=== PATIENT | female | born 1935 | race African-American/Black ===

== ENCOUNTER 2016-11-14 20:22 | Emergency (ER) | payer MEDICARE, MEDICAID ==
[~2016-11-14] VITALS: Ht 160 cm; Wt 68.0 kg
[~2016-11-14 20:22] MED LIST: CLON0.1T PO; COR25 PO; CYCL5TAB PO; DOCU-150 PO; DORZ10DR9 OP; ELIQUIS; FAMO20TA8 PO; LACT10SO PO; LATA2.5D2 OP; LOSA25TA12 PO; MIRTAZIPINE; NITR50CA2 PO; OMEP20TA80 PO; ONDA4TAB21 PO
[2016-11-14 21:13] LABS: BASOPHILS % 0.9 % (0.0-2.0); EOSINOPHILS % 1.7 % (0.0-5.0); HEMATOCRIT. 35.6 % (36.0-48.0); HEMOGLOBIN. 11.4 g/dL (12.0-16.0); LYMPHOCYTES % 43.1 % (20.0-50.0); MEAN CORPUSCULAR HEMOGLOBIN 23.9 pg (28.0-32.0); MEAN CORPUSCULAR VOLUME 74.4 fL (81.0-99.0); MEAN PLATELET VOLUME 8.1 fl (7.4-10.4); MONOCYTES % 13.1 % (2.0-8.0); NEUTROPHILS % 41.2 % (40.0-76.0); PLATELET 159 x1000/uL (130-400); RED BLOOD CELL COUNT 4.79 mill/uL (4.2-5.4); RED CELL DISTRIBUTION WIDTH 16.7 % (11.6-14.6)
[2016-11-14 21:31] LABS: CARBON DIOXIDE 30 mEq/L (21-32); CHLORIDE 105 mEq/L (98-107); TROPONIN I 0.06 ng/mL (0.00-0.04)
[2016-11-14 21:33] LABS: D-DIMER 13.33 mg/L FEU (<0.50); INR 1.2; PARTIAL THROMBOPLASTIN TIME 30.6 sec (24.0-34.0); PROTHROMBIN TIME 12.2 sec
[2016-11-15] MEDS ORDERED: ONDANSETRON 4MG ODT PO ONE
[2016-11-15 01:02] LABS: CLARITY URINE CLOUDY (CLEAR); COLOR URINE YELLOW (YELLOW); GLUCOSE URINE NEGATIVE (NEGATIVE); KETONES URINE NEGATIVE (NEGATIVE); LEUKOCYTE ESTERASE URINE 3+ (NEGATIVE); NITRITE URINE NEGATIVE (NEGATIVE); OCCULT BLOOD URINE 1+ (NEGATIVE); PH URINE 7.5 (4.5-8.0); PROTEIN URINE NEGATIVE (NEGATIVE); SPECIFIC GRAVITY URINE 1.009 (1.005-1.030); UROBILINOGEN URINE 0.2 E.U./dL (0.2-1.0)
[2016-11-15 04:05] VITALS: BP 129/75
== END 2016-11-15 04:05 | disposition home or self-care (01) ==
LOC: ER 20:22
DX: R00.2 Palpitations (principal); I11.0 Hypertensive heart disease with heart failure; Z90.710 Acquired absence of both cervix and uterus; Z95.5 Presence of coronary angioplasty implant and graft; Z86.718 Personal history of other venous thrombosis and embolism; Z88.0 Allergy status to penicillin; Z79.01 Long term (current) use of anticoagulants
CPT/HCPCS: 36415; 71010; 80053; 81001; 83690; 83880; 84484; 85025; 85379; 85610; 85730; 93005; 93970; 99285; Q0162

== ENCOUNTER 2016-12-13 17:22 | Emergency (ER) | payer MEDICARE, MEDICAID ==
[~2016-12-13] VITALS: Ht 160 cm; Wt 64.0 kg
[~2016-12-13 17:22] MED LIST changes: +NITR50CA PO; -NITR50CA2 PO; +OMEP20TA2 PO; -OMEP20TA80 PO
[2016-12-13] MEDS ORDERED: ONDANSETRON HCL 4MG/2ML VIAL IV STA (18:12)
[2016-12-13] MEDS ORDERED: SODIUM CHLORIDE 0.9% 1,000 ML IV ONE ×2 (18:12→18:17)
[2016-12-13] MEDS ORDERED: KETOROLAC 30MG/ML VIAL IV STA (18:12)
[2016-12-13 18:41] LABS: BASOPHILS % 0.7 % (0.0-2.0); EOSINOPHILS % 0.4 % (0.0-5.0); HEMATOCRIT. 38.3 % (36.0-48.0); HEMOGLOBIN. 12.1 g/dL (12.0-16.0); LYMPHOCYTES % 27.3 % (20.0-50.0); MEAN CORPUSCULAR HEMOGLOBIN 23.5 pg (28.0-32.0); MEAN CORPUSCULAR VOLUME 74.4 fL (81.0-99.0); MEAN PLATELET VOLUME 8.3 fl (7.4-10.4); MONOCYTES % 10.1 % (2.0-8.0); NEUTROPHILS % 61.5 % (40.0-76.0); PLATELET 191 x1000/uL (130-400); RED BLOOD CELL COUNT 5.15 mill/uL (4.2-5.4); RED CELL DISTRIBUTION WIDTH 17.2 % (11.6-14.6)
[2016-12-13 18:45] LABS: INR 1.2; PROTHROMBIN TIME 12.6 sec (9.4-11.6)
[2016-12-13 18:55] LABS: CARBON DIOXIDE 29 mEq/L (21-32); CHLORIDE 103 mEq/L (98-107)
[2016-12-13 20:40] LABS: CLARITY URINE CLOUDY (CLEAR); COLOR URINE YELLOW (YELLOW); GLUCOSE URINE NEGATIVE (NEGATIVE); KETONES URINE NEGATIVE (NEGATIVE); LEUKOCYTE ESTERASE URINE 3+ (NEGATIVE); NITRITE URINE NEGATIVE (NEGATIVE); OCCULT BLOOD URINE TRACE (NEGATIVE); PROTEIN URINE NEGATIVE (NEGATIVE); SPECIFIC GRAVITY URINE 1.009 (1.005-1.030)
[2016-12-13] MEDS ORDERED: LEVOFLOXACIN 750MG PREMIX 150 ML IV ONE (21:00)
[2016-12-13 22:40] VITALS: BP 158/84
== END 2016-12-13 22:50 | disposition home or self-care (01) ==
LOC: ER 18:01
DX: N39.0 Urinary tract infection, site not specified (principal); I11.0 Hypertensive heart disease with heart failure; E78.00 Pure hypercholesterolemia, unspecified; I25.2 Old myocardial infarction; I25.10 Atherosclerotic heart disease of native coronary artery without angina pectoris; Z90.710 Acquired absence of both cervix and uterus; Z95.5 Presence of coronary angioplasty implant and graft; Z88.0 Allergy status to penicillin
CPT/HCPCS: 36415; 80053; 81001; 83690; 85025; 85610; 96361; 96365; 96375; 99285; C1893; J1885; J1956; J2405; J7030

== ENCOUNTER 2017-03-19 16:31 | Emergency (ER) | payer MEDICARE, MEDICAID ==
[~2017-03-19] VITALS: Ht 157.5 cm; Wt 57.0 kg
[2017-03-19 18:57] LABS: *AMPHETAMINES SCREEN URINE NEGATIVE (NEGATIVE); *BARBITURATES SCREEN URINE NEGATIVE (NEGATIVE); *BENZODIAZEPINES SCREEN URINE NEGATIVE (NEGATIVE); *COCAINE SCREEN URINE NEGATIVE (NEGATIVE); CANNABINOID URINE SCREEN NEGATIVE (NEGATIVE); METHADONE URINE SCREEN NEGATIVE (NEGATIVE); OPIATES URINE SCREEN PRESUMTIVE POSITIVE (NEGATIVE); PHENCYCLIDINE URINE SCREEN NEGATIVE (NEGATIVE)
[2017-03-19 19:03] LABS: BASOPHILS % 0.8 % (0.0-2.0); EOSINOPHILS % 1.6 % (0.0-5.0); HEMATOCRIT. 38.6 % (36.0-48.0); HEMOGLOBIN. 12.7 g/dL (12.0-16.0); LYMPHOCYTES % 27.1 % (20.0-50.0); MEAN CORPUSCULAR HEMOGLOBIN 24.9 pg (28.0-32.0); MEAN CORPUSCULAR VOLUME 75.9 fL (81.0-99.0); MEAN PLATELET VOLUME 8.4 fl (7.4-10.4); MONOCYTES % 7.9 % (2.0-8.0); NEUTROPHILS % 62.6 % (40.0-76.0); PLATELET 194 x1000/uL (130-400); RED BLOOD CELL COUNT 5.09 mill/uL (4.2-5.4); RED CELL DISTRIBUTION WIDTH 16.4 % (11.6-14.6)
[2017-03-19 19:08] LABS: INR 1.1
[2017-03-19 19:18] VITALS: BP 157/86
[2017-03-19 19:18] LABS: CARBON DIOXIDE 29 mEq/L (21-32); CHLORIDE 103 mEq/L (98-107); TROPONIN I 0.03 ng/mL (0.00-0.04)
== END 2017-03-19 20:00 | disposition home or self-care (01) ==
LOC: ER 16:31
DX: R53.1 Weakness (principal); R63.0 Anorexia; R53.81 Other malaise; I25.10 Atherosclerotic heart disease of native coronary artery without angina pectoris; I11.0 Hypertensive heart disease with heart failure; I50.9 Heart failure, unspecified; E78.00 Pure hypercholesterolemia, unspecified; I25.2 Old myocardial infarction; Z88.0 Allergy status to penicillin; Z79.01 Long term (current) use of anticoagulants
CPT/HCPCS: 36415; 71010; 80048; 80305; 83880; 84484; 85025; 85610; 93005; 99285

== ENCOUNTER 2017-10-22 16:27 | Emergency (ER) | payer MEDICARE, MEDICAID ==
[~2017-10-22] VITALS: Ht 167.6 cm; Wt 70.0 kg
[~2017-10-22 16:27] MED LIST changes: +BIMA2.5D4 LEFTEYE; +BRIM15DR2 EACHEYE; -CYCL5TAB PO; -ELIQUIS; +GABA-531 PO; -LACT10SO PO; -LOSA25TA12 PO; +LOSA50TA3 PO; +MIRT15TA6 PO; -MIRTAZIPINE; -OMEP20TA2 PO; +OMEP40CA34 PO; +ONDA4TAB5 PO; +ROSU20TA PO
[2017-10-22] MEDS ORDERED: IBUPROFEN 600MG TABLET PO ONE (17:15)
[2017-10-22 21:11] VITALS: BP 110/87
== END 2017-10-22 21:25 | disposition home or self-care (01) ==
LOC: ER 16:52
DX: M54.5 Low back pain (principal); G89.29 Other chronic pain; I11.0 Hypertensive heart disease with heart failure; I50.9 Heart failure, unspecified; Z88.0 Allergy status to penicillin
CPT/HCPCS: 72100; 72131; 73522; 99284

== ENCOUNTER 2017-11-28 15:11 | Inpatient (IN) | payer MEDICARE, MEDICAID ==
[~2017-11-28] VITALS: Ht 167.6 cm; Wt 66.7 kg
[2017-11-28] MEDS ORDERED: LORAZEPAM 2MG/ML CPJ IV PRN (19:00)
[2017-11-28] MEDS ORDERED: HYDROCODONE/ACETAMINOPHEN 5/325MG TABLET PO PRN (19:00)
[2017-11-28] MEDS ORDERED: ACETAMINOPHEN 325MG TABLET PO PRN (19:00)
[2017-11-28] MEDS ORDERED: CLONIDINE 0.1MG TABLET PO PRN (19:00)
[2017-11-28] MEDS ORDERED: ONDANSETRON HCL 4MG/2ML VIAL IV PRN (19:00)
[2017-11-28] MEDS ORDERED: ACETAMINOPHEN 650MG/20.3ML UDC GT PRN (19:00)
[2017-11-28] MEDS ORDERED: ACETAMINOPHEN 650MG SUPP PR PRN (19:00)
[2017-11-28] MEDS ORDERED: MAGNESIUM/ALUMINUM HYDROXIDE/SIMETHICONE 30ML UDC PO PRN (19:00)
[2017-11-28 19:02] LABS: BASOPHILS % 0.6 % (0.0-2.0); EOSINOPHILS % 2.5 % (0.0-5.0); HEMATOCRIT. 35.3 % (36.0-48.0); HEMOGLOBIN. 11.4 g/dL (12.0-16.0); LYMPHOCYTES % 30.1 % (20.0-50.0); MEAN CORPUSCULAR VOLUME 74.7 fL (81.0-99.0); MONOCYTES % 10.1 % (2.0-8.0); NEUTROPHILS % 56.7 % (40.0-76.0); PLATELET 151 x1000/uL (130-400); RED BLOOD CELL COUNT 4.72 mill/uL (4.2-5.4); RED CELL DISTRIBUTION WIDTH 17.7 % (11.6-14.6)
[2017-11-28 19:04] LABS: CHLORIDE 107 mEq/L (98-107)
[2017-11-28 19:06] LABS: INR 1.2; PROTHROMBIN TIME 11.6 sec (9.1-11.1)
[2017-11-28 19:08] LABS: ETHANOL BLOOD < 10 mg/dL
[2017-11-28] MEDS ORDERED: ONDANSETRON 4MG ODT PO PRN (20:25)
[2017-11-28] MEDS ORDERED: NA PHOS,M-B/NA PHOS,DI-BA ENEMA 118ML PR PRN (21:00)
[2017-11-28] MEDS: HYDROCODONE/ACETAMINOPHEN 10/325MG TABLET PO PRN (21:11)
[2017-11-28 22:30] VITALS: BP 141/81
[2017-11-28 22:50] VITALS: BP 141/81
[2017-11-28] MEDS ORDERED: ATORVASTATIN CALCIUM 20MG TABLET PO SCH (23:32)
[2017-11-29] VITALS: BP 177/71
[2017-11-29] MEDS: GABAPENTIN 300MG CAPSULE PO SCH ×4 (00:07→21:06)
[2017-11-29] MEDS: FAMOTIDINE 20MG TABLET PO SCH ×2 (00:07→21:06)
[2017-11-29] MEDS: OMEPRAZOLE 20MG CAPSULE EXTENDED RELEASE PO SCH ×2 (00:07→06:53)
[2017-11-29] MEDS: CARVEDILOL 25MG TABLET PO SCH ×3 (00:08→21:00)
[2017-11-29] MEDS: LOSARTAN POTASSIUM 50 MG TABLET PO SCH ×2 (00:08→09:44)
[2017-11-29] MEDS ORDERED: LATANOPROST 0.005% OPHTH DROPS 2.5ML BOTHEYE SCH (02:00)
[2017-11-29 04:00] VITALS: BP 108/37
[2017-11-29 04:17] LABS: CLARITY URINE CLEAR (CLEAR); COLOR URINE YELLOW (YELLOW); KETONES URINE NEGATIVE (NEGATIVE); LEUKOCYTE ESTERASE URINE 1+ (NEGATIVE); NITRITE URINE NEGATIVE (NEGATIVE); OCCULT BLOOD URINE TRACE (NEGATIVE); PROTEIN URINE TRACE (NEGATIVE); UROBILINOGEN URINE 0.2 E.U./dL (0.2-1.0)
[2017-11-29 04:36] LABS: *BENZODIAZEPINES SCREEN URINE NEGATIVE (NEGATIVE)
[2017-11-29 04:37] LABS: *COCAINE SCREEN URINE NEGATIVE (NEGATIVE); CANNABINOID URINE SCREEN NEGATIVE (NEGATIVE); METHADONE URINE SCREEN NEGATIVE (NEGATIVE); OPIATES URINE SCREEN PRESUMTIVE POSITIVE (NEGATIVE); PHENCYCLIDINE URINE SCREEN NEGATIVE (NEGATIVE)
[2017-11-29 04:47] LABS: *AMPHETAMINES SCREEN URINE NEGATIVE (NEGATIVE); *BARBITURATES SCREEN URINE NEGATIVE (NEGATIVE)
[2017-11-29 06:44] LABS: PHOSPHORUS 3.5 mg/dL (2.5-4.9)
[2017-11-29 06:46] LABS: LDL CHOLESTEROL 93 mg/dL (5-100)
[2017-11-29 06:47] LABS: CREATINE KINASE 46 IU/L (26-192)
[2017-11-29 06:48] LABS: T4 FREE 1.24 ng/dL (0.76-1.46)
[2017-11-29 06:49] LABS: HDL CHOLESTEROL 58 mg/dL (40-59)
[2017-11-29 06:50] LABS: CREATINE KINASE MB FRACTION < 1.0 ng/mL (0.5-3.6)
[2017-11-29 08:00] VITALS: BP 127/37
[2017-11-29] MEDS: IPRATROPIUM/ALBUTEROL 0.5-3(2.5)MG/3ML NEB INH SCH ×3 (08:53→20:43)
[2017-11-29] MEDS ORDERED: REGADENOSON 0.4 MG/5 ML IV ONE ×2 (09:15→12:05)
[2017-11-29] MEDS: DORZOLAM/TIMOLOL 2.23/0.68% OPHTH DROPS 10ML BOTHEYE SCH ×2 (09:43→17:25)
[2017-11-29] MEDS: ASPIRIN 81MG TABLET PO SCH (09:48)
[2017-11-29] MEDS: ENOXAPARIN 40MG/0.4ML SYR SUBCUT SCH (09:49)
[2017-11-29 10:15] LABS: T4 FREE 1.22 ng/dL (0.76-1.46)
[2017-11-29] MEDS ORDERED: PNEUMOCOCCAL 23-VAL P-SAC VAC 0.5 ML IM ONE (12:00)
[2017-11-29] MEDS: BRIMONIDINE 0.2% OPHTH DROPS 5ML BOTHEYE SCH ×2 (13:17→17:24)
[2017-11-29 16:00] VITALS: BP_SYST 150; BP_SYST 84; BP_DIAS 34; BP_DIAS 82
[2017-11-29 16:00] LABS: CREATINE KINASE 39 IU/L (26-192)
[2017-11-29 16:01] LABS: CREATINE KINASE MB FRACTION < 1.0 ng/mL (0.5-3.6)
[2017-11-29] MEDS: MIRTAZAPINE 15MG TABLET PO SCH (17:25)
[2017-11-29] MEDS: HYDROCODONE/ACETAMINOPHEN 10/325MG TABLET PO PRN (17:36)
[2017-11-29 20:00] VITALS: BP 98/39
[2017-11-29] MEDS: LATANOPROST 0.005% OPHTH DROPS 2.5ML BOTHEYE SCH (21:05)
[2017-11-29] MEDS: ATORVASTATIN CALCIUM 40MG TABLET PO SCH (21:05)
[2017-11-29] MEDS: NITROFURANTOIN 100MG M/M CAPSULE PO SCH (21:06)
[2017-11-30] VITALS: BP 115/48
[2017-11-30] MEDS: IPRATROPIUM/ALBUTEROL 0.5-3(2.5)MG/3ML NEB INH SCH ×4 (01:44→20:39)
[2017-11-30 02:09] LABS: CREATINE KINASE 47 IU/L (26-192)
[2017-11-30 02:11] LABS: CREATINE KINASE MB FRACTION < 1.0 ng/mL (0.5-3.6)
[2017-11-30 04:00] VITALS: BP 118/41
[2017-11-30] MEDS: OMEPRAZOLE 20MG CAPSULE EXTENDED RELEASE PO SCH (06:29)
[2017-11-30] MEDS: GABAPENTIN 300MG CAPSULE PO SCH ×3 (06:29→21:43)
[2017-11-30 07:38] LABS: BASOPHILS % 0.5 % (0.0-2.0); HEMATOCRIT. 30.4 % (36.0-48.0); HEMOGLOBIN. 9.9 g/dL (12.0-16.0); LYMPHOCYTES % 34.2 % (20.0-50.0); MEAN CORPUSCULAR HEMOGLOBIN 24.3 pg (28.0-32.0); MEAN CORPUSCULAR VOLUME 74.8 fL (81.0-99.0); MEAN PLATELET VOLUME 8.9 fl (7.4-10.4); MONOCYTES % 10.5 % (2.0-8.0); NEUTROPHILS % 51.8 % (40.0-76.0); PLATELET 115 x1000/uL (130-400); RED BLOOD CELL COUNT 4.07 mill/uL (4.2-5.4); RED CELL DISTRIBUTION WIDTH 17.7 % (11.6-14.6)
[2017-11-30 07:57] LABS: CHLORIDE 105 mEq/L (98-107)
[2017-11-30 08:00] VITALS: BP 149/54
[2017-11-30 08:10] LABS: PHOSPHORUS 3.3 mg/dL (2.5-4.9)
[2017-11-30 08:11] LABS: CREATINE KINASE 34 IU/L (26-192)
[2017-11-30 08:22] LABS: CREATINE KINASE MB FRACTION < 1.0 ng/mL (0.5-3.6)
[2017-11-30] MEDS: ENOXAPARIN 40MG/0.4ML SYR SUBCUT SCH (10:02)
[2017-11-30] MEDS: LOSARTAN POTASSIUM 50 MG TABLET PO SCH (10:03)
[2017-11-30] MEDS: NITROFURANTOIN 100MG M/M CAPSULE PO SCH ×2 (10:03→21:43)
[2017-11-30] MEDS: CARVEDILOL 25MG TABLET PO SCH ×2 (10:04→21:48)
[2017-11-30] MEDS: ASPIRIN 81MG TABLET PO SCH (10:04)
[2017-11-30 12:00] VITALS: BP 145/52
[2017-11-30] MEDS: DORZOLAM/TIMOLOL 2.23/0.68% OPHTH DROPS 10ML BOTHEYE SCH ×2 (15:53→21:43)
[2017-11-30] MEDS: BRIMONIDINE 0.2% OPHTH DROPS 5ML BOTHEYE SCH ×2 (15:54→21:43)
[2017-11-30 16:00] VITALS: BP 123/47
[2017-11-30] MEDS: MIRTAZAPINE 15MG TABLET PO SCH (18:46)
[2017-11-30 20:00] VITALS: BP 167/69
[2017-11-30] MEDS: ATORVASTATIN CALCIUM 40MG TABLET PO SCH (21:43)
[2017-11-30] MEDS: LATANOPROST 0.005% OPHTH DROPS 2.5ML BOTHEYE SCH (21:43)
[2017-11-30] MEDS: FAMOTIDINE 20MG TABLET PO SCH (21:44)
[2017-12-01] VITALS: BP 108/46
[2017-12-01] MEDS: IPRATROPIUM/ALBUTEROL 0.5-3(2.5)MG/3ML NEB INH SCH ×2 (02:00→08:49)
[2017-12-01] MEDS: GABAPENTIN 300MG CAPSULE PO SCH ×2 (05:57→13:02)
[2017-12-01 07:49] LABS: CHLORIDE 108 mEq/L (98-107)
[2017-12-01 07:56] LABS: BASOPHILS % 0.4 % (0.0-2.0); EOSINOPHILS % 4.4 % (0.0-5.0); HEMATOCRIT. 31.8 % (36.0-48.0); HEMOGLOBIN. 10.3 g/dL (12.0-16.0); LYMPHOCYTES % 34.4 % (20.0-50.0); MEAN CORPUSCULAR HEMOGLOBIN 24.3 pg (28.0-32.0); MEAN CORPUSCULAR VOLUME 75.3 fL (81.0-99.0); MONOCYTES % 11.4 % (2.0-8.0); NEUTROPHILS % 49.4 % (40.0-76.0); PLATELET 117 x1000/uL (130-400); RED BLOOD CELL COUNT 4.22 mill/uL (4.2-5.4); RED CELL DISTRIBUTION WIDTH 17.6 % (11.6-14.6)
[2017-12-01 08:00] VITALS: BP 155/59
[2017-12-01] MEDS: LOSARTAN POTASSIUM 50 MG TABLET PO SCH (09:00)
[2017-12-01] MEDS: NITROFURANTOIN 100MG M/M CAPSULE PO SCH (11:01)
[2017-12-01] MEDS: ASPIRIN 81MG TABLET PO SCH (11:01)
[2017-12-01] MEDS: DORZOLAM/TIMOLOL 2.23/0.68% OPHTH DROPS 10ML BOTHEYE SCH (11:01)
[2017-12-01] MEDS: BRIMONIDINE 0.2% OPHTH DROPS 5ML BOTHEYE SCH (11:02)
[2017-12-01] MEDS: ENOXAPARIN 40MG/0.4ML SYR SUBCUT SCH (11:03)
[2017-12-01 14:49] VITALS: BP 150/63
[2017-12-01] MEDS: CARVEDILOL 25MG TABLET PO SCH (15:09)
== END 2017-12-01 16:41 | disposition home or self-care (01) | DRG 205 ==
LOC: ER 15:37 → 5WST 18:27 → EDBEDREQTM 18:29 → EDBEDREQ 18:29 → ENRESERV 20:20
PROVIDERS: ADMIT Family Medicine Adult Medicine; ATTEND Family Medicine Adult Medicine
DX: M94.0 Chondrocostal junction syndrome [Tietze] (principal); I50.23 Acute on chronic systolic (congestive) heart failure; N39.0 Urinary tract infection, site not specified; I42.9 Cardiomyopathy, unspecified; I11.0 Hypertensive heart disease with heart failure; E78.5 Hyperlipidemia, unspecified; I25.10 Atherosclerotic heart disease of native coronary artery without angina pectoris; I44.7 Left bundle-branch block, unspecified; I48.0 Paroxysmal atrial fibrillation; J44.9 Chronic obstructive pulmonary disease, unspecified; K57.90 Diverticulosis of intestine, part unspecified, without perforation or abscess without bleeding; I34.0 Nonrheumatic mitral (valve) insufficiency; D64.9 Anemia, unspecified; I49.3 Ventricular premature depolarization; R91.1 Solitary pulmonary nodule; Z95.5 Presence of coronary angioplasty implant and graft; I25.2 Old myocardial infarction; Z86.73 Personal history of transient ischemic attack (TIA), and cerebral infarction without residual deficits; Z86.718 Personal history of other venous thrombosis and embolism; Z88.6 Allergy status to analgesic agent; Z88.0 Allergy status to penicillin; Z79.899 Other long term (current) drug therapy
CPT/HCPCS: 36415; 71045; 78452; 80048; 80053; 80061; 80305; 81003; 82040; 82550; 82553; 83036; 83605; 83690; 83735; 83880; 84100; 84439; 84443; 84481; 84484; 85025; 85379; 85610; 87077; 87086; 87186; 90732; 93005; 93017; 93306; 93970; 94640; 97110; 97162; 99285; A9500; C1893; G0482; J1650; J2785; J7620

== ENCOUNTER 2018-02-03 14:04 | Emergency (ER) | payer MEDICARE, MEDICAID ==
[~2018-02-03] VITALS: Ht 165.1 cm; Wt 65.0 kg
[~2018-02-03 14:04] MED LIST changes: -FAMO20TA8 PO; -NITR50CA PO; -ONDA4TAB5 PO
[2018-02-03] MEDS ORDERED: MORPHINE SULFATE 10 MG/ML CPJ IV ONE (15:30)
[2018-02-03] MEDS ORDERED: METOCLOPRAMIDE HCL 10MG/2ML VIAL IV ONE (15:30)
[2018-02-03 19:15] VITALS: BP 131/74
== END 2018-02-03 19:45 | disposition home or self-care (01) ==
LOC: ER 14:04
DX: S82.292A Other fracture of shaft of left tibia, initial encounter for closed fracture (principal); S93.491A Sprain of other ligament of right ankle, initial encounter; I11.0 Hypertensive heart disease with heart failure; I50.9 Heart failure, unspecified; E11.9 Type 2 diabetes mellitus without complications; W17.2XXA Fall into hole, initial encounter; Y93.89 Activity, other specified; Y92.89 Other specified places as the place of occurrence of the external cause; Y99.8 Other external cause status; Z88.0 Allergy status to penicillin; Z79.899 Other long term (current) drug therapy
CPT/HCPCS: 29515; 73590; 73610; 73630; 96374; 96375; 99284; J2270; J2765

== ENCOUNTER 2018-02-16 16:39 | Inpatient (IN) | payer MEDICARE, MEDICAID ==
[~2018-02-16] VITALS: Ht 160 cm; Wt 60.3 kg
[2018-02-16] MEDS ORDERED: MORPHINE SULFATE 4 MG/ML CPJ (NOT FOR IM USE) IV STA (17:23)
[2018-02-16] MEDS ORDERED: ONDANSETRON HCL 4MG/2ML INJ IV STA (17:23)
[2018-02-16] MEDS ORDERED: SODIUM CHLORIDE 0.9% 1,000 ML IV ONE (17:23)
[2018-02-16 17:38] LABS: BASOPHILS % 1.1 % (0.0-2.0); EOSINOPHILS % 1.5 % (0.0-5.0); HEMATOCRIT. 36.3 % (36.0-48.0); HEMOGLOBIN. 11.6 g/dL (12.0-16.0); LYMPHOCYTES % 27.8 % (20.0-50.0); MEAN CORPUSCULAR HEMOGLOBIN 24.4 pg (28.0-32.0); MEAN CORPUSCULAR VOLUME 76.4 fL (81.0-99.0); MEAN PLATELET VOLUME 8.5 fl (7.4-10.4); MONOCYTES % 9.9 % (2.0-8.0); NEUTROPHILS % 59.7 % (40.0-76.0); PLATELET 170 x1000/uL (130-400); RED BLOOD CELL COUNT 4.75 mill/uL (4.2-5.4)
[2018-02-16 17:45] LABS: INR 1.2; PROTHROMBIN TIME 12.2 sec (9.1-11.1)
[2018-02-16 17:47] LABS: CHLORIDE 98 mEq/L (98-107)
[2018-02-16 17:52] LABS: CLARITY URINE CLEAR (CLEAR); COLOR URINE YELLOW (YELLOW); KETONES URINE TRACE (NEGATIVE); LEUKOCYTE ESTERASE URINE 1+ (NEGATIVE); NITRITE URINE NEGATIVE (NEGATIVE); OCCULT BLOOD URINE 1+ (NEGATIVE); PROTEIN URINE NEGATIVE (NEGATIVE); SPECIFIC GRAVITY URINE 1.009 (1.005-1.030)
[2018-02-16] MEDS ORDERED: ASPIRIN 81MG TABLET PO ONE (18:30)
[2018-02-16] MEDS ORDERED: ACETAMINOPHEN 650MG/20.3ML UDC GT PRN (22:30)
[2018-02-16] MEDS ORDERED: POTASSIUM CHLORIDE 20MEQ TABLET SR PO PRN (22:30)
[2018-02-16] MEDS ORDERED: ONDANSETRON HCL 4MG/2ML INJ IV PRN (22:30)
[2018-02-16] MEDS ORDERED: CLONIDINE 0.1MG TABLET PO PRN (22:30)
[2018-02-17] VITALS: BP_SYST 154; BP_SYST 166; BP_DIAS 53; BP_DIAS 60
[2018-02-17] MEDS ORDERED: SODIUM CHLORIDE 0.9% 100 ML IV ONE (00:15)
[2018-02-17] MEDS: NITROFURANTOIN 100MG M/M CAPSULE PO SCH ×3 (00:38→21:38)
[2018-02-17 04:00] VITALS: BP 157/64
[2018-02-17] MEDS: GABAPENTIN 300MG CAPSULE PO SCH ×3 (06:29→21:39)
[2018-02-17] MEDS: OMEPRAZOLE 20MG CAPSULE EXTENDED RELEASE PO SCH (06:29)
[2018-02-17 06:38] LABS: BASOPHILS % 0.9 % (0.0-2.0); EOSINOPHILS % 2.8 % (0.0-5.0); HEMATOCRIT. 32.2 % (36.0-48.0); HEMOGLOBIN. 10.2 g/dL (12.0-16.0); LYMPHOCYTES % 31.6 % (20.0-50.0); MEAN CORPUSCULAR HEMOGLOBIN 24.4 pg (28.0-32.0); MEAN CORPUSCULAR VOLUME 76.9 fL (81.0-99.0); MEAN PLATELET VOLUME 7.8 fl (7.4-10.4); MONOCYTES % 11.5 % (2.0-8.0); NEUTROPHILS % 53.2 % (40.0-76.0); PLATELET 163 x1000/uL (130-400); RED BLOOD CELL COUNT 4.19 mill/uL (4.2-5.4)
[2018-02-17 08:00] VITALS: BP 161/73
[2018-02-17 08:11] LABS: CHLORIDE 104 mEq/L (98-107)
[2018-02-17] MEDS: LOSARTAN POTASSIUM 50 MG TABLET PO SCH (10:11)
[2018-02-17] MEDS: CARVEDILOL 25MG TABLET PO SCH ×2 (10:12→21:39)
[2018-02-17 12:00] VITALS: BP 132/64
[2018-02-17] MEDS ORDERED: POTASSIUM CHLORIDE 20MEQ/PACKET PO SCH (15:15)
[2018-02-17 16:00] VITALS: BP 143/74
[2018-02-17] MEDS: MIRTAZAPINE 15MG TABLET PO SCH (17:28)
[2018-02-17 20:00] VITALS: BP 111/44
[2018-02-17] MEDS: ATORVASTATIN CALCIUM 20MG TABLET PO SCH (21:39)
[2018-02-18] VITALS: BP 134/68
[2018-02-18 04:00] VITALS: BP 155/70
[2018-02-18] MEDS: OMEPRAZOLE 20MG CAPSULE EXTENDED RELEASE PO SCH (06:10)
[2018-02-18] MEDS: GABAPENTIN 300MG CAPSULE PO SCH ×3 (06:10→21:15)
[2018-02-18 06:48] LABS: BASOPHILS % 0.9 % (0.0-2.0); EOSINOPHILS % 2.7 % (0.0-5.0); HEMATOCRIT. 32.7 % (36.0-48.0); HEMOGLOBIN. 10.4 g/dL (12.0-16.0); LYMPHOCYTES % 30.7 % (20.0-50.0); MEAN CORPUSCULAR HEMOGLOBIN 24.4 pg (28.0-32.0); MEAN CORPUSCULAR VOLUME 76.4 fL (81.0-99.0); MEAN PLATELET VOLUME 8.4 fl (7.4-10.4); MONOCYTES % 11.1 % (2.0-8.0); NEUTROPHILS % 54.6 % (40.0-76.0); PLATELET 163 x1000/uL (130-400); RED BLOOD CELL COUNT 4.27 mill/uL (4.2-5.4); RED CELL DISTRIBUTION WIDTH 15.8 % (11.6-14.6)
[2018-02-18 07:21] LABS: CHLORIDE 103 mEq/L (98-107)
[2018-02-18 08:00] VITALS: BP 173/56
[2018-02-18] MEDS: CARVEDILOL 25MG TABLET PO SCH ×2 (09:30→21:16)
[2018-02-18] MEDS: NITROFURANTOIN 100MG M/M CAPSULE PO SCH ×2 (09:30→21:16)
[2018-02-18] MEDS: LOSARTAN POTASSIUM 50 MG TABLET PO SCH (09:30)
[2018-02-18] MEDS ORDERED: ACETAMINOPHEN 650MG/20.3ML UDC PO PRN (10:30)
[2018-02-18 12:00] VITALS: BP 139/61
[2018-02-18] MEDS ORDERED: POTASSIUM CHLORIDE 20MEQ/PACKET PO NR ×2 (12:15→14:15)
[2018-02-18] MEDS ORDERED: POTASSIUM CHLORIDE 20MEQ TABLET SR PO NR (15:00)
[2018-02-18 16:00] VITALS: BP 123/52
[2018-02-18] MEDS: MIRTAZAPINE 15MG TABLET PO SCH (18:13)
[2018-02-18 20:00] VITALS: BP 116/48
[2018-02-18] MEDS: ATORVASTATIN CALCIUM 20MG TABLET PO SCH (21:16)
[2018-02-19] VITALS: BP 151/70
[2018-02-19 04:00] VITALS: BP 148/59
[2018-02-19] MEDS: GABAPENTIN 300MG CAPSULE PO SCH ×3 (05:53→21:21)
[2018-02-19] MEDS: OMEPRAZOLE 20MG CAPSULE EXTENDED RELEASE PO SCH (05:53)
[2018-02-19 08:00] VITALS: BP 122/48
[2018-02-19] MEDS: NITROFURANTOIN 100MG M/M CAPSULE PO SCH ×2 (08:33→21:16)
[2018-02-19] MEDS: LOSARTAN POTASSIUM 100 MG TABLET PO SCH (08:33)
[2018-02-19] MEDS: CARVEDILOL 25MG TABLET PO SCH ×2 (08:34→21:17)
[2018-02-19] MEDS: HYDROCODONE/ACETAMINOPHEN 5/325MG TABLET PO PRN (08:59)
[2018-02-19] MEDS ORDERED: POTASSIUM CHLORIDE 20MEQ TABLET SR PO NR (10:45)
[2018-02-19] MEDS ORDERED: LACTULOSE 20G/30ML UDC PO SCH (11:15)
[2018-02-19 12:00] VITALS: BP 124/50
[2018-02-19 16:00] VITALS: BP 118/52
[2018-02-19] MEDS: MIRTAZAPINE 15MG TABLET PO SCH (17:38)
[2018-02-19 20:00] VITALS: BP 123/58
[2018-02-19] MEDS: ATORVASTATIN CALCIUM 20MG TABLET PO SCH (21:17)
[2018-02-19] MEDS ORDERED: LORAZEPAM 2MG/ML CPJ IV PRN (22:30)
[2018-02-20] VITALS: BP 110/61
[2018-02-20 04:00] VITALS: BP 110/45
[2018-02-20] MEDS: OMEPRAZOLE 20MG CAPSULE EXTENDED RELEASE PO SCH (05:55)
[2018-02-20] MEDS: GABAPENTIN 300MG CAPSULE PO SCH ×3 (05:55→21:15)
[2018-02-20 08:00] VITALS: BP 159/71
[2018-02-20 08:04] LABS: BASOPHILS % 0.6 % (0.0-2.0); EOSINOPHILS % 4.9 % (0.0-5.0); HEMATOCRIT. 33.5 % (36.0-48.0); HEMOGLOBIN. 10.6 g/dL (12.0-16.0); LYMPHOCYTES % 29.9 % (20.0-50.0); MEAN CORPUSCULAR VOLUME 75.8 fL (81.0-99.0); MEAN PLATELET VOLUME 8.5 fl (7.4-10.4); MONOCYTES % 11.4 % (2.0-8.0); NEUTROPHILS % 53.2 % (40.0-76.0); PLATELET 163 x1000/uL (130-400); RED BLOOD CELL COUNT 4.42 mill/uL (4.2-5.4); RED CELL DISTRIBUTION WIDTH 15.7 % (11.6-14.6)
[2018-02-20] MEDS: CARVEDILOL 25MG TABLET PO SCH ×2 (09:25→21:00)
[2018-02-20] MEDS: LOSARTAN POTASSIUM 100 MG TABLET PO SCH (09:25)
[2018-02-20] MEDS: NITROFURANTOIN 100MG M/M CAPSULE PO SCH (09:25)
[2018-02-20 10:30] LABS: CHLORIDE 103 mEq/L (98-107)
[2018-02-20] MEDS: HYDROCODONE/ACETAMINOPHEN 5/325MG TABLET PO PRN ×2 (11:26→21:16)
[2018-02-20 12:00] VITALS: BP 166/69
[2018-02-20] MEDS ORDERED: NA PHOS,M-B/NA PHOS,DI-BA ENEMA 118ML PR PRN (13:15)
[2018-02-20] MEDS ORDERED: BISACODYL 10MG SUPP PR NR (13:15)
[2018-02-20] MEDS: LACTULOSE 20G/30ML UDC PO SCH ×2 (15:15→17:00)
[2018-02-20 16:00] VITALS: BP 113/47
[2018-02-20] MEDS: MIRTAZAPINE 15MG TABLET PO SCH (19:07)
[2018-02-20 20:00] VITALS: BP 99/44
[2018-02-20] MEDS: ATORVASTATIN CALCIUM 20MG TABLET PO SCH (21:15)
[2018-02-21] VITALS (7 sets, daily range): BP systolic 85–127; BP diastolic 39–98
[2018-02-21] MEDS: HYDROCODONE/ACETAMINOPHEN 5/325MG TABLET PO PRN (04:08)
[2018-02-21] MEDS: OMEPRAZOLE 20MG CAPSULE EXTENDED RELEASE PO SCH (06:08)
[2018-02-21] MEDS: GABAPENTIN 300MG CAPSULE PO SCH ×2 (06:08→15:02)
[2018-02-21 06:25] LABS: BASOPHILS % 0.6 % (0.0-2.0); EOSINOPHILS % 3.6 % (0.0-5.0); HEMATOCRIT. 34.2 % (36.0-48.0); HEMOGLOBIN. 10.8 g/dL (12.0-16.0); LYMPHOCYTES % 26.7 % (20.0-50.0); MEAN CORPUSCULAR HEMOGLOBIN 24.2 pg (28.0-32.0); MEAN CORPUSCULAR VOLUME 76.9 fL (81.0-99.0); MEAN PLATELET VOLUME 8.4 fl (7.4-10.4); MONOCYTES % 10.2 % (2.0-8.0); NEUTROPHILS % 58.9 % (40.0-76.0); PLATELET 158 x1000/uL (130-400); RED BLOOD CELL COUNT 4.45 mill/uL (4.2-5.4); RED CELL DISTRIBUTION WIDTH 16.2 % (11.6-14.6)
[2018-02-21] MEDS: CARVEDILOL 25MG TABLET PO SCH (09:00)
[2018-02-21] MEDS: LOSARTAN POTASSIUM 100 MG TABLET PO SCH (09:00)
[2018-02-21] MEDS: MIRTAZAPINE 15MG TABLET PO SCH (18:12)
[2018-02-22] MEDS ORDERED: FAMOTIDINE 20MG TABLET PO SCH (09:00)
== END 2018-02-21 20:10 | DRG 690 ==
LOC: ER 17:41 → 5WST 19:24 → EDBEDREQ 19:38 → EDBEDREQTM 19:38 → ENRESERV 20:43
PROVIDERS: ADMIT Specialist; ATTEND Specialist
DX: N39.0 Urinary tract infection, site not specified (principal); I50.22 Chronic systolic (congestive) heart failure; A08.4 Viral intestinal infection, unspecified; E87.6 Hypokalemia; I25.5 Ischemic cardiomyopathy; R26.9 Unspecified abnormalities of gait and mobility; R53.81 Other malaise; S82.302A Unspecified fracture of lower end of left tibia, initial encounter for closed fracture; W18.39XA Other fall on same level, initial encounter; D50.9 Iron deficiency anemia, unspecified; E11.59 Type 2 diabetes mellitus with other circulatory complications; E78.5 Hyperlipidemia, unspecified; H54.61 Unqualified visual loss, right eye, normal vision left eye; I11.0 Hypertensive heart disease with heart failure; I25.10 Atherosclerotic heart disease of native coronary artery without angina pectoris; I48.0 Paroxysmal atrial fibrillation; J44.9 Chronic obstructive pulmonary disease, unspecified; K57.90 Diverticulosis of intestine, part unspecified, without perforation or abscess without bleeding; Z86.718 Personal history of other venous thrombosis and embolism; Z86.73 Personal history of transient ischemic attack (TIA), and cerebral infarction without residual deficits; Z86.79 Personal history of other diseases of the circulatory system; Z87.891 Personal history of nicotine dependence; Z88.0 Allergy status to penicillin; I25.2 Old myocardial infarction; Z90.710 Acquired absence of both cervix and uterus; Y93.89 Activity, other specified; Y92.89 Other specified places as the place of occurrence of the external cause; Y99.8 Other external cause status
CPT/HCPCS: 36415; 71045; 74176; 80048; 82962; 83880; 84484; 87077; 87186; 93005; 93970; 96361; 96374; 96375; 97162; 97166; 99285; A6261; C1893; J2270; J2405; J7030

== ENCOUNTER 2018-04-02 12:34 | Emergency (ER) | payer MEDICARE, MEDICAID ==
[~2018-04-02] VITALS: Ht 162.6 cm; Wt 62.0 kg
[~2018-04-02 12:34] MED LIST changes: -BIMA2.5D4 LEFTEYE; -BRIM15DR2 EACHEYE; -DOCU-150 PO; -DORZ10DR9 OP; -LATA2.5D2 OP; -OMEP40CA34 PO; -ONDA4TAB21 PO; -ROSU20TA PO
[2018-04-02] MEDS ORDERED: IBUPROFEN 600MG TABLET PO STA (13:33)
[2018-04-02] MEDS ORDERED: ACETAMINOPHEN 325MG TABLET PO ONE (14:00)
[2018-04-02] MEDS ORDERED: HYDROCODONE/ACETAMINOPHEN 5/325MG TABLET PO ONE (15:45)
[2018-04-02 18:08] LABS: CLARITY URINE CLEAR (CLEAR); COLOR URINE YELLOW (YELLOW); KETONES URINE NEGATIVE (NEGATIVE); LEUKOCYTE ESTERASE URINE 1+ (NEGATIVE); NITRITE URINE NEGATIVE (NEGATIVE); OCCULT BLOOD URINE 1+ (NEGATIVE); PROTEIN URINE NEGATIVE (NEGATIVE); SPECIFIC GRAVITY URINE 1.009 (1.005-1.030)
[2018-04-02 21:24] VITALS: BP 118/70
== END 2018-04-02 21:33 | disposition home or self-care (01) ==
LOC: ER 12:34
DX: M79.652 Pain in left thigh (principal); M79.651 Pain in right thigh; I11.0 Hypertensive heart disease with heart failure; I50.9 Heart failure, unspecified; E11.9 Type 2 diabetes mellitus without complications; Z88.0 Allergy status to penicillin; Z79.899 Other long term (current) drug therapy
CPT/HCPCS: 93970; 99284

== ENCOUNTER 2018-07-24 16:38 | Inpatient (IN) | payer MEDICARE, MEDICAID ==
[~2018-07-24] VITALS: Ht 160 cm; Wt 59.0 kg
[2018-07-24] MEDS ORDERED: MORPHINE SULFATE 4 MG/ML CPJ (NOT FOR IM USE) IV STA (17:20)
[2018-07-24] MEDS ORDERED: SODIUM CHLORIDE 0.9% 1,000 ML IV ONE (17:20)
[2018-07-24 18:03] LABS: BASOPHILS % 1.2 % (0.0-2.0); EOSINOPHILS % 2.4 % (0.0-5.0); HEMATOCRIT. 36.9 % (36.0-48.0); HEMOGLOBIN. 11.8 g/dL (12.0-16.0); LYMPHOCYTES % 33.5 % (20.0-50.0); MEAN CORPUSCULAR HEMOGLOBIN 24.4 pg (28.0-32.0); MEAN CORPUSCULAR VOLUME 76.1 fL (81.0-99.0); MONOCYTES % 10.7 % (2.0-8.0); NEUTROPHILS % 52.2 % (40.0-76.0); PLATELET 177 x1000/uL (130-400); RED BLOOD CELL COUNT 4.85 mill/uL (4.2-5.4)
[2018-07-24 18:07] LABS: CHLORIDE 105 mEq/L (98-107)
[2018-07-24] MEDS ORDERED: ASPIRIN 81MG TABLET PO ONE (18:45)
[2018-07-24] MEDS ORDERED: ONDANSETRON HCL 4MG/2ML INJ IV ONE (19:00)
[2018-07-24 19:30] LABS: CLARITY URINE CLEAR (CLEAR); COLOR URINE YELLOW (YELLOW); KETONES URINE NEGATIVE (NEGATIVE); LEUKOCYTE ESTERASE URINE 2+ (NEGATIVE); NITRITE URINE NEGATIVE (NEGATIVE); OCCULT BLOOD URINE 1+ (NEGATIVE); PROTEIN URINE NEGATIVE (NEGATIVE); SPECIFIC GRAVITY URINE 1.006 (1.005-1.030)
[2018-07-24] MEDS ORDERED: SULFAMETHOXAZOLE/TRIMETHOPRIM 800/160MG TABLET PO ONE (19:45)
[2018-07-24] MEDS ORDERED: CLONIDINE 0.1MG TABLET PO PRN (21:45)
[2018-07-24] MEDS ORDERED: DOCUSATE SODIUM 100MG CAPSULE PO PRN (21:45)
[2018-07-24] MEDS ORDERED: HYDROCODONE/ACETAMINOPHEN 5/325MG TABLET PO PRN (21:45)
[2018-07-24] MEDS ORDERED: MAGNESIUM/ALUMINUM HYDROXIDE/SIMETHICONE 30ML UDC PO PRN (21:45)
[2018-07-24 23:21] VITALS: BP 150/60
[2018-07-24] MEDS ORDERED: PNEUMOCOCCAL 23-VAL P-SAC VAC 0.5 ML IM ONE (23:45)
[2018-07-25] VITALS: BP 119/67
[2018-07-25] MEDS: PANTOPRAZOLE SODIUM 40 MG/VIAL IV SCH ×2 (00:09→08:04)
[2018-07-25] MEDS: DIPHENHYDRAMINE 50MG/ML VIAL IV PRN ×2 (03:22→20:42)
[2018-07-25 04:00] VITALS: BP 143/55
[2018-07-25 07:17] LABS: BASOPHILS % 0.5 % (0.0-2.0); EOSINOPHILS % 5.3 % (0.0-5.0); HEMATOCRIT. 32.6 % (36.0-48.0); HEMOGLOBIN. 10.2 g/dL (12.0-16.0); LYMPHOCYTES % 35.9 % (20.0-50.0); MEAN CORPUSCULAR HEMOGLOBIN 23.9 pg (28.0-32.0); MEAN CORPUSCULAR VOLUME 76.2 fL (81.0-99.0); MEAN PLATELET VOLUME 8.3 fl (7.4-10.4); MONOCYTES % 12.3 % (2.0-8.0); PLATELET 170 x1000/uL (130-400); RED BLOOD CELL COUNT 4.28 mill/uL (4.2-5.4); RED CELL DISTRIBUTION WIDTH 17.6 % (11.6-14.6)
[2018-07-25 08:00] VITALS: BP 143/63
[2018-07-25 08:02] LABS: CHLORIDE 106 mEq/L (98-107)
[2018-07-25] MEDS: ENOXAPARIN 40MG/0.4ML SYR SUBCUT SCH (08:08)
[2018-07-25 08:16] LABS: LDL CHOLESTEROL 108 mg/dL (5-100)
[2018-07-25 08:19] LABS: HDL CHOLESTEROL 50 mg/dL (40-59); T4 FREE 1.31 ng/dL (0.76-1.46)
[2018-07-25 12:00] VITALS: BP 164/71
[2018-07-25] MEDS ORDERED: DEXT 5% WATER 500 ML IV ONE (13:45)
[2018-07-25] MEDS: ONDANSETRON HCL 4MG/2ML INJ IV PRN (15:48)
[2018-07-25] MEDS: NITROFURANTOIN 100MG M/M CAPSULE PO SCH ×2 (15:48→20:30)
[2018-07-25 16:00] VITALS: BP 173/76
[2018-07-25 16:58] LABS: VITAMIN B12 SERUM > 2000.0 pg/mL (211-911)
[2018-07-25 20:00] VITALS: BP 140/78
[2018-07-25] MEDS: ATORVASTATIN CALCIUM 10MG TABLET PO SCH (20:28)
[2018-07-25] MEDS: CARVEDILOL 25MG TABLET PO SCH (20:29)
[2018-07-25] MEDS: AMLODIPINE 2.5MG TABLET PO SCH (20:29)
[2018-07-25] MEDS: MORPHINE SULFATE 4 MG/ML CPJ (NOT FOR IM USE) IV PRN (22:53)
[2018-07-26] VITALS: BP 130/70
[2018-07-26 04:00] VITALS: BP 120/65
[2018-07-26 06:13] LABS: BASOPHILS % 0.2 % (0.0-2.0); EOSINOPHILS % 3.5 % (0.0-5.0); HEMATOCRIT. 30.8 % (36.0-48.0); HEMOGLOBIN. 9.9 g/dL (12.0-16.0); LYMPHOCYTES % 35.6 % (20.0-50.0); MEAN CORPUSCULAR HEMOGLOBIN 24.3 pg (28.0-32.0); MEAN CORPUSCULAR VOLUME 75.6 fL (81.0-99.0); MEAN PLATELET VOLUME 8.4 fl (7.4-10.4); MONOCYTES % 12.6 % (2.0-8.0); NEUTROPHILS % 48.1 % (40.0-76.0); PLATELET 153 x1000/uL (130-400); RED BLOOD CELL COUNT 4.07 mill/uL (4.2-5.4); RED CELL DISTRIBUTION WIDTH 17.2 % (11.6-14.6)
[2018-07-26 06:14] LABS: CHLORIDE 104 mEq/L (98-107)
[2018-07-26 08:00] VITALS: BP 117/44
[2018-07-26] MEDS: ONDANSETRON HCL 4MG/2ML INJ IV PRN (08:17)
[2018-07-26] MEDS: ENOXAPARIN 40MG/0.4ML SYR SUBCUT SCH (08:17)
[2018-07-26] MEDS: PANTOPRAZOLE SODIUM 40 MG/VIAL IV SCH (08:17)
[2018-07-26] MEDS: ASPIRIN 81MG EC TABLET PO SCH (08:18)
[2018-07-26] MEDS: CARVEDILOL 25MG TABLET PO SCH ×2 (08:18→20:38)
[2018-07-26] MEDS: NITROFURANTOIN 100MG M/M CAPSULE PO SCH ×2 (08:18→20:38)
[2018-07-26] MEDS: AMLODIPINE 2.5MG TABLET PO SCH ×2 (08:35→20:38)
[2018-07-26] MEDS: MORPHINE SULFATE 4 MG/ML CPJ (NOT FOR IM USE) IV PRN ×2 (08:46→21:49)
[2018-07-26 12:00] VITALS: BP 108/40
[2018-07-26] MEDS ORDERED: IOHEXOL-300 100 ML BOTTLE ONE (13:54)
[2018-07-26 16:00] VITALS: BP 117/56
[2018-07-26 20:00] VITALS: BP 120/60
[2018-07-26] MEDS: DIPHENHYDRAMINE 50MG/ML VIAL IV PRN (20:37)
[2018-07-26] MEDS: ATORVASTATIN CALCIUM 10MG TABLET PO SCH (20:38)
[2018-07-27] VITALS: BP 110/55
[2018-07-27 04:00] VITALS: BP 117/53
[2018-07-27 07:36] LABS: BASOPHILS % 0.5 % (0.0-2.0); CHLORIDE 103 mEq/L (98-107); EOSINOPHILS % 7.3 % (0.0-5.0); HEMATOCRIT. 32.3 % (36.0-48.0); HEMOGLOBIN. 10.1 g/dL (12.0-16.0); LYMPHOCYTES % 35.5 % (20.0-50.0); MEAN CORPUSCULAR VOLUME 76.4 fL (81.0-99.0); MEAN PLATELET VOLUME 8.6 fl (7.4-10.4); MONOCYTES % 11.8 % (2.0-8.0); NEUTROPHILS % 44.9 % (40.0-76.0); PLATELET 155 x1000/uL (130-400); RED BLOOD CELL COUNT 4.22 mill/uL (4.2-5.4); RED CELL DISTRIBUTION WIDTH 17.4 % (11.6-14.6)
[2018-07-27 08:00] VITALS: BP_SYST 122; BP_SYST 123; BP_DIAS 44; BP_DIAS 71
[2018-07-27] MEDS: NITROFURANTOIN 100MG M/M CAPSULE PO SCH ×2 (08:31→20:16)
[2018-07-27] MEDS: ASPIRIN 81MG EC TABLET PO SCH (08:31)
[2018-07-27] MEDS: PANTOPRAZOLE SODIUM 40 MG/VIAL IV SCH (08:31)
[2018-07-27] MEDS: ENOXAPARIN 40MG/0.4ML SYR SUBCUT SCH (08:32)
[2018-07-27] MEDS: CARVEDILOL 25MG TABLET PO SCH ×2 (08:39→20:17)
[2018-07-27] MEDS: AMLODIPINE 2.5MG TABLET PO SCH ×2 (08:45→20:16)
[2018-07-27] MEDS: MORPHINE SULFATE 4 MG/ML CPJ (NOT FOR IM USE) IV PRN (10:09)
[2018-07-27 12:00] VITALS: BP_SYST 123
[2018-07-27 16:00] VITALS: BP 96/40
[2018-07-27 17:33] VITALS: BP 126/46
[2018-07-27] MEDS: ATORVASTATIN CALCIUM 10MG TABLET PO SCH (20:16)
== END 2018-07-27 20:25 | disposition home or self-care (01) | DRG 690 ==
LOC: ER 16:38 → EDBEDREQ 18:48 → 7WST 18:58 → EDBEDREQTM 19:01 → EDBEDREQ 19:01 → ENRESERV 21:22
PROVIDERS: ADMIT Specialist; ATTEND Specialist
DX: N39.0 Urinary tract infection, site not specified (principal); I50.22 Chronic systolic (congestive) heart failure; E11.9 Type 2 diabetes mellitus without complications; D50.9 Iron deficiency anemia, unspecified; E78.5 Hyperlipidemia, unspecified; B96.5 Pseudomonas (aeruginosa) (mallei) (pseudomallei) as the cause of diseases classified elsewhere; R07.89 Other chest pain; I11.0 Hypertensive heart disease with heart failure; I25.10 Atherosclerotic heart disease of native coronary artery without angina pectoris; I25.5 Ischemic cardiomyopathy; Z82.49 Family history of ischemic heart disease and other diseases of the circulatory system; Z86.73 Personal history of transient ischemic attack (TIA), and cerebral infarction without residual deficits; Z86.79 Personal history of other diseases of the circulatory system; I25.2 Old myocardial infarction; Z90.710 Acquired absence of both cervix and uterus; Z95.5 Presence of coronary angioplasty implant and graft; Z95.828 Presence of other vascular implants and grafts; Z88.0 Allergy status to penicillin; Z79.899 Other long term (current) drug therapy; Z86.718 Personal history of other venous thrombosis and embolism
CPT/HCPCS: 36415; 71045; 71260; 74176; 74177; 80048; 80061; 82550; 82607; 82962; 83735; 84439; 84443; 84481; 84484; 87077; 87186; 90732; 93005; 93306; 96374; 99285; C9113; J1200; J1650; J2270; J2405; J7030; Q9967

== ENCOUNTER 2018-09-27 19:51 | Inpatient (IN) | payer MEDICARE, MEDICAID ==
[~2018-09-27] VITALS: Ht 160 cm; Wt 59.9 kg
[2018-09-27] MEDS ORDERED: SODIUM CHLORIDE 0.9% 1,000 ML IV ONE (20:33)
[2018-09-27] MEDS ORDERED: ONDANSETRON HCL 4MG/2ML INJ IV STA (20:33)
[2018-09-27] MEDS ORDERED: MORPHINE SULFATE 4 MG/ML CPJ (NOT FOR IM USE) IV STA (20:33)
[2018-09-27] MEDS ORDERED: LEVOFLOXACIN 750MG PREMIX 150 ML IV ONE (20:45)
[2018-09-27 20:59] LABS: CHLORIDE 103 mEq/L (98-107)
[2018-09-27 21:03] LABS: INR 1.1; PARTIAL THROMBOPLASTIN TIME 26.8 sec (23.4-31.0); PROTHROMBIN TIME 11.5 sec (9.6-11.0)
[2018-09-27 21:07] LABS: BASOPHILS % 0.8 % (0.0-2.0); EOSINOPHILS % 1.3 % (0.0-5.0); HEMATOCRIT. 37.3 % (36.0-48.0); HEMOGLOBIN. 12.3 g/dL (12.0-16.0); LYMPHOCYTES % 26.1 % (20.0-50.0); MEAN CORPUSCULAR HEMOGLOBIN 24.7 pg (28.0-32.0); MEAN CORPUSCULAR VOLUME 74.7 fL (81.0-99.0); MONOCYTES % 9.9 % (2.0-8.0); NEUTROPHILS % 61.9 % (40.0-76.0); PLATELET 172 x1000/uL (130-400); RED CELL DISTRIBUTION WIDTH 16.1 % (11.6-14.6)
[2018-09-27 21:19] LABS: PLATELET ESTIMATE NORMAL
[2018-09-27 22:40] LABS: CLARITY URINE CLEAR (CLEAR); COLOR URINE YELLOW (YELLOW); KETONES URINE NEGATIVE (NEGATIVE); LEUKOCYTE ESTERASE URINE 1+ (NEGATIVE); NITRITE URINE NEGATIVE (NEGATIVE); OCCULT BLOOD URINE 1+ (NEGATIVE); PROTEIN URINE 1+ (NEGATIVE); SPECIFIC GRAVITY URINE 1.007 (1.005-1.030)
[2018-09-27] MEDS ORDERED: HYDROCODONE/ACETAMINOPHEN 5/325MG TABLET PO PRN (23:30)
[2018-09-27] MEDS ORDERED: ONDANSETRON HCL 4MG/2ML INJ IV PRN (23:30)
[2018-09-27] MEDS ORDERED: GUAIFENESIN 200MG/10ML SUGAR FREE UDC PO PRN (23:30)
[2018-09-27] MEDS ORDERED: DOCUSATE SODIUM 100MG CAPSULE PO PRN (23:30)
[2018-09-27] MEDS ORDERED: LORAZEPAM 0.5MG TABLET PO PRN (23:30)
[2018-09-27] MEDS ORDERED: DIPHENHYDRAMINE 50MG/ML VIAL IV PRN (23:30)
[2018-09-27] MEDS ORDERED: IPRATROPIUM/ALBUTEROL 0.5-3(2.5)MG/3ML NEB INH PRN (23:30)
[2018-09-27] MEDS ORDERED: MAGNESIUM/ALUMINUM HYDROXIDE/SIMETHICONE 30ML UDC PO PRN (23:30)
[2018-09-27] MEDS ORDERED: CLONIDINE 0.1MG TABLET PO PRN (23:30)
[2018-09-27] MEDS ORDERED: ASPIRIN 325MG EC TABLET PO ONE (23:45)
[2018-09-28 02:30] VITALS: BP 134/67
[2018-09-28] MEDS ORDERED: FURO-152 PO (03:02)
[2018-09-28] MEDS: MIRTAZAPINE 15MG TABLET PO SCH ×2 (03:16→23:05)
[2018-09-28] MEDS: MORPHINE SULFATE 2 MG/ML CPJ (NOT FOR IM USE) IV PRN (03:17)
[2018-09-28 04:00] VITALS: BP 128/59
[2018-09-28] MEDS: GABAPENTIN 300MG CAPSULE PO SCH ×3 (06:21→23:06)
[2018-09-28] MEDS: BRIMONIDINE 0.2% OPHTH DROPS 5ML BOTHEYE SCH ×3 (06:21→23:06)
[2018-09-28 07:02] LABS: BASOPHILS % 0.6 % (0.0-2.0); HEMATOCRIT. 36.8 % (36.0-48.0); HEMOGLOBIN. 11.9 g/dL (12.0-16.0); LYMPHOCYTES % 29.7 % (20.0-50.0); MEAN CORPUSCULAR HEMOGLOBIN 24.3 pg (28.0-32.0); MEAN CORPUSCULAR VOLUME 75.3 fL (81.0-99.0); NEUTROPHILS % 56.7 % (40.0-76.0); PLATELET 174 x1000/uL (130-400); RED BLOOD CELL COUNT 4.89 mill/uL (4.2-5.4); RED CELL DISTRIBUTION WIDTH 16.3 % (11.6-14.6)
[2018-09-28 07:52] LABS: CHLORIDE 108 mEq/L (98-107)
[2018-09-28 08:00] VITALS: BP 91/39
[2018-09-28 08:07] LABS: PHOSPHORUS 2.6 mg/dL (2.5-4.9)
[2018-09-28 08:08] LABS: LDL CHOLESTEROL 111 mg/dL (5-100)
[2018-09-28 08:10] LABS: HDL CHOLESTEROL 55 mg/dL (40-59)
[2018-09-28] MEDS: APIXABAN 2.5 MG TABLET PO SCH ×2 (08:53→17:17)
[2018-09-28] MEDS ORDERED: LOSARTAN POTASSIUM 50 MG TABLET PO SCH (09:00)
[2018-09-28] MEDS ORDERED: CARVEDILOL 25MG TABLET PO SCH (09:00)
[2018-09-28] MEDS: ACETAMINOPHEN 325MG TABLET PO PRN (09:13)
[2018-09-28 12:00] VITALS: BP 129/67
[2018-09-28 16:00] VITALS: BP 100/45
[2018-09-28 20:00] VITALS: BP 118/61
[2018-09-28] MEDS ORDERED: NON FORMULARY PATIENT HOME MED XX SCH (20:45)
[2018-09-28] MEDS: CARVEDILOL 6.25 MG TABLET PO SCH (21:00)
[2018-09-28] MEDS: LATANOPROST 0.005% OPHTH DROPS 2.5ML LEFTEYE SCH (23:06)
[2018-09-29] VITALS: BP 136/52
[2018-09-29 04:00] VITALS: BP 117/60
[2018-09-29] MEDS: BRIMONIDINE 0.2% OPHTH DROPS 5ML BOTHEYE SCH ×3 (05:52→22:29)
[2018-09-29] MEDS: GABAPENTIN 300MG CAPSULE PO SCH ×3 (05:52→22:32)
[2018-09-29 06:57] LABS: BASOPHILS % 0.8 % (0.0-2.0); EOSINOPHILS % 3.5 % (0.0-5.0); HEMATOCRIT. 32.4 % (36.0-48.0); HEMOGLOBIN. 10.4 g/dL (12.0-16.0); LYMPHOCYTES % 32.4 % (20.0-50.0); MEAN CORPUSCULAR HEMOGLOBIN 23.8 pg (28.0-32.0); MEAN CORPUSCULAR VOLUME 74.4 fL (81.0-99.0); MEAN PLATELET VOLUME 8.4 fl (7.4-10.4); MONOCYTES % 11.5 % (2.0-8.0); NEUTROPHILS % 51.8 % (40.0-76.0); PLATELET 176 x1000/uL (130-400); RED BLOOD CELL COUNT 4.35 mill/uL (4.2-5.4); RED CELL DISTRIBUTION WIDTH 16.1 % (11.6-14.6)
[2018-09-29 07:22] LABS: CHLORIDE 107 mEq/L (98-107)
[2018-09-29 08:00] VITALS: BP 120/61
[2018-09-29] MEDS: LOSARTAN POTASSIUM 25 MG TABLET PO SCH (09:00)
[2018-09-29] MEDS: APIXABAN 2.5 MG TABLET PO SCH ×2 (11:20→18:59)
[2018-09-29] MEDS: CARVEDILOL 6.25 MG TABLET PO SCH ×2 (11:21→22:28)
[2018-09-29 12:00] VITALS: BP 125/74
[2018-09-29] MEDS ORDERED: ESCI10TA54 PO (15:55)
[2018-09-29] MEDS ORDERED: FAMO40TA7 PO (15:55)
[2018-09-29] MEDS ORDERED: BRIM10DR16 BOTHEYE (15:55)
[2018-09-29 16:00] VITALS: BP 130/72
[2018-09-29 16:44] LABS: TOTAL IRON BINDING CAPACITY 182 ug/dL (250-450)
[2018-09-29] MEDS: MORPHINE SULFATE 2 MG/ML CPJ (NOT FOR IM USE) IV PRN (19:35)
[2018-09-29 20:00] VITALS: BP 145/59
[2018-09-29] MEDS: LATANOPROST 0.005% OPHTH DROPS 2.5ML LEFTEYE SCH (22:27)
[2018-09-29] MEDS: NITROFURANTOIN 100MG M/M CAPSULE PO SCH (22:28)
[2018-09-29] MEDS: MIRTAZAPINE 15MG TABLET PO SCH (22:28)
[2018-09-29] MEDS: FAMOTIDINE 20MG TABLET PO SCH (22:28)
[2018-09-30] VITALS: BP 139/68
[2018-09-30 04:00] VITALS: BP 135/47
[2018-09-30 05:51] LABS: CHLORIDE 105 mEq/L (98-107)
[2018-09-30 06:08] LABS: BASOPHILS % 0.7 % (0.0-2.0); HEMATOCRIT. 31.5 % (36.0-48.0); HEMOGLOBIN. 10.2 g/dL (12.0-16.0); LYMPHOCYTES % 33.5 % (20.0-50.0); MEAN CORPUSCULAR HEMOGLOBIN 24.2 pg (28.0-32.0); MEAN CORPUSCULAR VOLUME 74.6 fL (81.0-99.0); MEAN PLATELET VOLUME 8.5 fl (7.4-10.4); MONOCYTES % 11.5 % (2.0-8.0); NEUTROPHILS % 51.3 % (40.0-76.0); PLATELET 182 x1000/uL (130-400); RED BLOOD CELL COUNT 4.22 mill/uL (4.2-5.4); RED CELL DISTRIBUTION WIDTH 16.2 % (11.6-14.6)
[2018-09-30] MEDS: BRIMONIDINE 0.2% OPHTH DROPS 5ML BOTHEYE SCH ×3 (06:27→21:52)
[2018-09-30] MEDS: GABAPENTIN 300MG CAPSULE PO SCH ×3 (06:28→21:52)
[2018-09-30] MEDS ORDERED: POTASSIUM CHLORIDE 20MEQ/PACKET PO NR (07:15)
[2018-09-30 08:00] VITALS: BP 118/48
[2018-09-30] MEDS: ACETAMINOPHEN 325MG TABLET PO PRN (08:32)
[2018-09-30] MEDS: MORPHINE SULFATE 2 MG/ML CPJ (NOT FOR IM USE) IV PRN (08:32)
[2018-09-30] MEDS: APIXABAN 2.5 MG TABLET PO SCH ×2 (10:25→18:14)
[2018-09-30] MEDS: NITROFURANTOIN 100MG M/M CAPSULE PO SCH ×2 (10:25→21:52)
[2018-09-30] MEDS: LOSARTAN POTASSIUM 25 MG TABLET PO SCH (10:26)
[2018-09-30] MEDS: CARVEDILOL 6.25 MG TABLET PO SCH ×2 (10:26→21:52)
[2018-09-30 12:00] VITALS: BP 102/45
[2018-09-30 16:00] VITALS: BP 96/45
[2018-09-30 20:00] VITALS: BP 120/48
[2018-09-30] MEDS: LATANOPROST 0.005% OPHTH DROPS 2.5ML LEFTEYE SCH (21:51)
[2018-09-30] MEDS: FAMOTIDINE 20MG TABLET PO SCH (21:52)
[2018-09-30] MEDS: MIRTAZAPINE 15MG TABLET PO SCH (21:53)
[2018-10-01] VITALS (7 sets, daily range): BP systolic 98–152; BP diastolic 34–64
[2018-10-01] MEDS: MORPHINE SULFATE 2 MG/ML CPJ (NOT FOR IM USE) IV PRN ×3 (01:18→23:18)
[2018-10-01] MEDS: BRIMONIDINE 0.2% OPHTH DROPS 5ML BOTHEYE SCH ×3 (05:46→21:34)
[2018-10-01] MEDS: GABAPENTIN 300MG CAPSULE PO SCH ×3 (05:46→21:34)
[2018-10-01 06:10] LABS: EOSINOPHILS % 6.5 % (0.0-5.0); HEMATOCRIT. 31.9 % (36.0-48.0); HEMOGLOBIN. 10.2 g/dL (12.0-16.0); LYMPHOCYTES % 40.8 % (20.0-50.0); MEAN CORPUSCULAR VOLUME 75.2 fL (81.0-99.0); MEAN PLATELET VOLUME 8.4 fl (7.4-10.4); NEUTROPHILS % 39.7 % (40.0-76.0); PLATELET 196 x1000/uL (130-400); RED BLOOD CELL COUNT 4.25 mill/uL (4.2-5.4); RED CELL DISTRIBUTION WIDTH 16.7 % (11.6-14.6)
[2018-10-01 06:29] LABS: CHLORIDE 107 mEq/L (98-107)
[2018-10-01] MEDS: NITROFURANTOIN 100MG M/M CAPSULE PO SCH (09:39)
[2018-10-01] MEDS: LOSARTAN POTASSIUM 25 MG TABLET PO SCH (09:39)
[2018-10-01] MEDS: APIXABAN 2.5 MG TABLET PO SCH ×2 (09:39→17:12)
[2018-10-01] MEDS: CARVEDILOL 6.25 MG TABLET PO SCH ×2 (09:39→21:00)
[2018-10-01] MEDS: CEFTAZIDIME PENTAHYDRATE 1 G in DEXTROSE 5% WATER 50 ML IV SCH (15:37)
[2018-10-01] MEDS: LATANOPROST 0.005% OPHTH DROPS 2.5ML LEFTEYE SCH (21:33)
[2018-10-01] MEDS: FAMOTIDINE 20MG TABLET PO SCH (21:33)
[2018-10-01] MEDS: MIRTAZAPINE 15MG TABLET PO SCH (21:33)
[2018-10-02] VITALS: BP 103/49
[2018-10-02] MEDS: CEFTAZIDIME PENTAHYDRATE 1 G in DEXTROSE 5% WATER 50 ML IV SCH ×2 (03:08→18:10)
[2018-10-02 04:00] VITALS: BP 157/69
[2018-10-02 06:22] LABS: EOSINOPHILS % 6.8 % (0.0-5.0); HEMOGLOBIN. 12.8 g/dL (12.0-16.0); MEAN CORPUSCULAR HEMOGLOBIN 24.1 pg (28.0-32.0); MEAN CORPUSCULAR VOLUME 75.5 fL (81.0-99.0); MEAN PLATELET VOLUME 8.1 fl (7.4-10.4); MONOCYTES % 11.3 % (2.0-8.0); NEUTROPHILS % 38.9 % (40.0-76.0); PLATELET 234 x1000/uL (130-400); RED CELL DISTRIBUTION WIDTH 16.8 % (11.6-14.6)
[2018-10-02] MEDS: BRIMONIDINE 0.2% OPHTH DROPS 5ML BOTHEYE SCH ×2 (06:38→18:20)
[2018-10-02] MEDS: GABAPENTIN 300MG CAPSULE PO SCH ×2 (06:38→18:20)
[2018-10-02 06:44] LABS: CHLORIDE 105 mEq/L (98-107)
[2018-10-02] MEDS ORDERED: SODIUM BICARBONATE 4% (2.4MEQ) 5ML VIAL IV ONE (07:54)
[2018-10-02] MEDS ORDERED: LIDOCAINE HCL 1% 20ML VIAL (Pyxis) INJ ONE ×2 (07:54→10:00)
[2018-10-02 08:00] VITALS: BP 97/48
[2018-10-02] MEDS: LOSARTAN POTASSIUM 25 MG TABLET PO SCH (09:00)
[2018-10-02] MEDS: CARVEDILOL 6.25 MG TABLET PO SCH (09:00)
[2018-10-02] MEDS: APIXABAN 2.5 MG TABLET PO SCH ×2 (09:23→18:20)
[2018-10-02] MEDS: MORPHINE SULFATE 2 MG/ML CPJ (NOT FOR IM USE) IV PRN (09:24)
[2018-10-02 12:00] VITALS: BP 127/49
[2018-10-02 16:00] VITALS: BP 135/50
[2018-10-02 18:43] VITALS: BP 101/65
[2018-10-02] MEDS ORDERED: CARVEDILOL 3.125 MG TABLET PO SCH (21:00)
== END 2018-10-02 19:17 | disposition home or self-care (01) | DRG 690 ==
LOC: ER 20:43 → 7WST 23:37 → ENRESERV 09-28 01:23
PROVIDERS: ADMIT Specialist; ATTEND Specialist
DX: N30.90 Cystitis, unspecified without hematuria (principal); D68.59 Other primary thrombophilia; K57.90 Diverticulosis of intestine, part unspecified, without perforation or abscess without bleeding; K52.9 Noninfective gastroenteritis and colitis, unspecified; D64.9 Anemia, unspecified; I11.0 Hypertensive heart disease with heart failure; I44.7 Left bundle-branch block, unspecified; I50.9 Heart failure, unspecified; E78.00 Pure hypercholesterolemia, unspecified; E87.6 Hypokalemia; I25.10 Atherosclerotic heart disease of native coronary artery without angina pectoris; I44.0 Atrioventricular block, first degree; I48.0 Paroxysmal atrial fibrillation; I95.9 Hypotension, unspecified; Z90.710 Acquired absence of both cervix and uterus; Z86.73 Personal history of transient ischemic attack (TIA), and cerebral infarction without residual deficits; Z86.79 Personal history of other diseases of the circulatory system; Z86.718 Personal history of other venous thrombosis and embolism; Z95.828 Presence of other vascular implants and grafts; Z79.01 Long term (current) use of anticoagulants; Z91.19 Patient's noncompliance with other medical treatment and regimen; Z98.1 Arthrodesis status; Z98.61 Coronary angioplasty status; Z86.711 Personal history of pulmonary embolism; Z88.0 Allergy status to penicillin; Z79.899 Other long term (current) drug therapy
CPT/HCPCS: 36415; 71045; 74176; 80048; 80061; 80076; 83540; 83550; 83735; 83880; 84100; 84443; 84484; 87077; 87186; 93005; 93970; 97161; 97165; 99285; A6261; C1893; J0713; J1956; J2270; J2405; J3490; J7030; J7050; J7060

== ENCOUNTER 2018-10-14 18:33 | Inpatient (IN) | payer MEDICARE, MEDICAID ==
[~2018-10-14] VITALS: Ht 160 cm; Wt 59.0 kg
[~2018-10-14 18:33] MED LIST changes: +BRIM10DR16 BOTHEYE; -CLON0.1T PO; +ESCI10TA54 PO; +FAMO40TA7 PO; +FURO-152 PO; -LOSA50TA3 PO
[2018-10-14 20:11] LABS: BASOPHILS % 1.1 % (0.0-2.0); EOSINOPHILS % 3.3 % (0.0-5.0); HEMATOCRIT. 33.3 % (36.0-48.0); HEMOGLOBIN. 10.8 g/dL (12.0-16.0); LYMPHOCYTES % 34.6 % (20.0-50.0); MEAN CORPUSCULAR HEMOGLOBIN 24.3 pg (28.0-32.0); MEAN CORPUSCULAR VOLUME 75.1 fL (81.0-99.0); MONOCYTES % 11.2 % (2.0-8.0); NEUTROPHILS % 49.8 % (40.0-76.0); PLATELET 151 x1000/uL (130-400); RED BLOOD CELL COUNT 4.43 mill/uL (4.2-5.4); RED CELL DISTRIBUTION WIDTH 17.1 % (11.6-14.6)
[2018-10-14] MEDS ORDERED: IPRATROPIUM/ALBUTEROL 0.5-3(2.5)MG/3ML NEB INH PRN (20:15)
[2018-10-14] MEDS ORDERED: DOCUSATE SODIUM 100MG CAPSULE PO PRN (20:15)
[2018-10-14] MEDS ORDERED: CLONIDINE 0.1MG TABLET PO PRN (20:15)
[2018-10-14] MEDS ORDERED: GUAIFENESIN 200MG/10ML SUGAR FREE UDC PO PRN (20:15)
[2018-10-14] MEDS ORDERED: MAGNESIUM/ALUMINUM HYDROXIDE/SIMETHICONE 30ML UDC PO PRN (20:15)
[2018-10-14] MEDS ORDERED: DIPHENHYDRAMINE 50MG/ML VIAL IV PRN (20:15)
[2018-10-14] MEDS ORDERED: HYDROCODONE/ACETAMINOPHEN 5/325MG TABLET PO PRN (20:15)
[2018-10-14] MEDS ORDERED: ACETAMINOPHEN 325MG TABLET PO PRN (20:15)
[2018-10-14 20:16] LABS: INR 1.2; PROTHROMBIN TIME 11.9 sec (9.6-11.0)
[2018-10-14 20:21] LABS: CHLORIDE 105 mEq/L (98-107)
[2018-10-14 22:40] LABS: CLARITY URINE CLEAR (CLEAR); COLOR URINE YELLOW (YELLOW); KETONES URINE NEGATIVE (NEGATIVE); LEUKOCYTE ESTERASE URINE TRACE (NEGATIVE); NITRITE URINE NEGATIVE (NEGATIVE); OCCULT BLOOD URINE TRACE (NEGATIVE); PH URINE 8.5 (4.5-8.0); PROTEIN URINE NEGATIVE (NEGATIVE); SPECIFIC GRAVITY URINE 1.005 (1.005-1.030); UROBILINOGEN URINE 0.2 E.U./dL (0.2-1.0)
[2018-10-15] MEDS: MORPHINE SULFATE 2 MG/ML CPJ (NOT FOR IM USE) IV PRN ×4 (00:30→18:20)
[2018-10-15] MEDS: ONDANSETRON HCL 4MG/2ML INJ IV PRN (00:30)
[2018-10-15] MEDS ORDERED: CEFEPIME 2,000 MG in DEXT 5% WATER 100 ML IV SCH (02:00)
[2018-10-15 04:00] VITALS: BP_SYST 138; BP_DIAS 47; BP_DIAS 65
[2018-10-15] MEDS ORDERED: APIX5TAB PO (04:36)
[2018-10-15 07:53] LABS: BASOPHILS % 1.1 % (0.0-2.0); EOSINOPHILS % 3.5 % (0.0-5.0); HEMATOCRIT. 33.1 % (36.0-48.0); HEMOGLOBIN. 10.7 g/dL (12.0-16.0); LYMPHOCYTES % 34.5 % (20.0-50.0); MEAN CORPUSCULAR HEMOGLOBIN 24.3 pg (28.0-32.0); MEAN CORPUSCULAR VOLUME 74.8 fL (81.0-99.0); MEAN PLATELET VOLUME 9.1 fl (7.4-10.4); MONOCYTES % 11.1 % (2.0-8.0); NEUTROPHILS % 49.8 % (40.0-76.0); PLATELET 156 x1000/uL (130-400); RED BLOOD CELL COUNT 4.43 mill/uL (4.2-5.4); RED CELL DISTRIBUTION WIDTH 17.1 % (11.6-14.6)
[2018-10-15 08:19] LABS: CHLORIDE 106 mEq/L (98-107)
[2018-10-15 08:36] LABS: PHOSPHORUS 3.3 mg/dL (2.5-4.9)
[2018-10-15 08:38] LABS: LDL CHOLESTEROL 113 mg/dL (5-100)
[2018-10-15 08:39] LABS: HDL CHOLESTEROL 59 mg/dL (40-59)
[2018-10-15 08:42] LABS: T4 FREE 1.05 ng/dL (0.76-1.46)
[2018-10-15] MEDS: FUROSEMIDE 40MG/4ML VIAL IV SCH (10:22)
[2018-10-15 12:00] VITALS: BP 114/48
[2018-10-15] MEDS: CEFEPIME 2,000 MG in DEXT 5% WATER 100 ML IV SCH ×2 (12:39→20:08)
[2018-10-15 16:00] VITALS: BP 116/51
[2018-10-15] MEDS ORDERED: MEDICATION NOT ON FORMULARY EA (Apixaban (Eliquis) 5 MG) PO SCH (17:00)
[2018-10-15] MEDS: APIXABAN 5 MG TABLET PO SCH (18:01)
[2018-10-15 20:00] VITALS: BP 125/81
[2018-10-16] VITALS: BP 113/63
[2018-10-16] MEDS: CEFEPIME 2,000 MG in DEXT 5% WATER 100 ML IV SCH ×3 (03:14→20:57)
[2018-10-16 04:00] VITALS: BP 132/53
[2018-10-16 07:59] LABS: BASOPHILS % 0.9 % (0.0-2.0); EOSINOPHILS % 6.1 % (0.0-5.0); HEMATOCRIT. 34.8 % (36.0-48.0); LYMPHOCYTES % 39.8 % (20.0-50.0); MEAN CORPUSCULAR HEMOGLOBIN 23.6 pg (28.0-32.0); MONOCYTES % 12.7 % (2.0-8.0); NEUTROPHILS % 40.5 % (40.0-76.0); PLATELET 149 x1000/uL (130-400); RED BLOOD CELL COUNT 4.64 mill/uL (4.2-5.4); RED CELL DISTRIBUTION WIDTH 17.3 % (11.6-14.6)
[2018-10-16 08:00] VITALS: BP 112/48
[2018-10-16 08:32] LABS: CHLORIDE 105 mEq/L (98-107)
[2018-10-16] MEDS: MORPHINE SULFATE 2 MG/ML CPJ (NOT FOR IM USE) IV PRN ×2 (08:48→17:36)
[2018-10-16] MEDS: APIXABAN 5 MG TABLET PO SCH (08:48)
[2018-10-16] MEDS: FUROSEMIDE 40MG/4ML VIAL IV SCH (08:48)
[2018-10-16 12:00] VITALS: BP 126/52
[2018-10-16 16:00] VITALS: BP 126/52
[2018-10-16] MEDS ORDERED: SORBITOL 70% SOLN 30ML PO NR ×2 (16:00→20:00)
[2018-10-16 20:50] VITALS: BP 147/56
[2018-10-16] MEDS: PANTOPRAZOLE SODIUM 40 MG/VIAL IV SCH (20:59)
[2018-10-16] MEDS: CARVEDILOL 12.5MG TABLET PO SCH (21:01)
[2018-10-16] MEDS: ONDANSETRON HCL 4MG/2ML INJ IV PRN (21:03)
[2018-10-17] VITALS: BP 123/54
[2018-10-17 04:00] VITALS: BP 139/87
[2018-10-17 07:16] LABS: BASOPHILS % 1.1 % (0.0-2.0); EOSINOPHILS % 2.1 % (0.0-5.0); HEMATOCRIT. 38.5 % (36.0-48.0); LYMPHOCYTES % 25.2 % (20.0-50.0); MEAN CORPUSCULAR HEMOGLOBIN 23.8 pg (28.0-32.0); MEAN PLATELET VOLUME 7.9 fl (7.4-10.4); MONOCYTES % 11.8 % (2.0-8.0); NEUTROPHILS % 59.8 % (40.0-76.0); PLATELET 162 x1000/uL (130-400); RED BLOOD CELL COUNT 5.06 mill/uL (4.2-5.4); RED CELL DISTRIBUTION WIDTH 17.3 % (11.6-14.6)
[2018-10-17 07:24] LABS: INR 1.2; PARTIAL THROMBOPLASTIN TIME 26.5 sec (23.4-31.0); PROTHROMBIN TIME 12.3 sec (9.6-11.0)
[2018-10-17 07:39] LABS: CHLORIDE 109 mEq/L (98-107)
[2018-10-17 08:00] VITALS: BP 144/66
[2018-10-17] MEDS ORDERED: CEFEPIME 2,000 MG in DEXT 5% WATER 100 ML IV SCH (08:00)
[2018-10-17] MEDS ORDERED: SIMETHICONE 40 MG/0.6 ML 30ML ONE (08:32)
[2018-10-17] MEDS ORDERED: BACTERIOSTATIC SODIUM CHLORIDE 0.9% 30ML VIAL IJ ONE (08:32)
[2018-10-17] MEDS: PANTOPRAZOLE SODIUM 40 MG/VIAL IV SCH ×2 (10:21→20:32)
[2018-10-17] MEDS: CARVEDILOL 12.5MG TABLET PO SCH ×2 (10:21→20:32)
[2018-10-17 12:00] VITALS: BP 136/76
[2018-10-17 16:00] VITALS: BP 127/70
[2018-10-17] MEDS ORDERED: MIDAZOLAM HCL 5 MG/5 ML VIAL ONE (17:21)
[2018-10-17] MEDS ORDERED: FENTANYL CITRATE/PF 50MCG/ML 2ML VIAL ONE (17:21)
[2018-10-17] MEDS ORDERED: MIDAZOLAM HCL 5 MG/5 ML VIAL IV PRN (17:25)
[2018-10-17 20:00] VITALS: BP 156/67
[2018-10-18] VITALS: BP 123/58
[2018-10-18] MEDS: MORPHINE SULFATE 2 MG/ML CPJ (NOT FOR IM USE) IV PRN ×2 (02:56→09:32)
[2018-10-18 04:00] VITALS: BP 130/58
[2018-10-18 07:29] LABS: BASOPHILS % 0.8 % (0.0-2.0); EOSINOPHILS % 3.1 % (0.0-5.0); LYMPHOCYTES % 31.1 % (20.0-50.0); MEAN CORPUSCULAR HEMOGLOBIN 24.2 pg (28.0-32.0); MEAN CORPUSCULAR VOLUME 75.7 fL (81.0-99.0); MEAN PLATELET VOLUME 8.2 fl (7.4-10.4); MONOCYTES % 10.1 % (2.0-8.0); NEUTROPHILS % 54.9 % (40.0-76.0); PLATELET 151 x1000/uL (130-400); RED BLOOD CELL COUNT 4.18 mill/uL (4.2-5.4); RED CELL DISTRIBUTION WIDTH 17.1 % (11.6-14.6)
[2018-10-18 07:32] LABS: CHLORIDE 109 mEq/L (98-107)
[2018-10-18 08:00] VITALS: BP 134/69
[2018-10-18 08:45] LABS: HEMATOCRIT. 31.7 % (36.0-48.0); HEMOGLOBIN. 10.1 g/dL (12.0-16.0)
[2018-10-18] MEDS: CARVEDILOL 12.5MG TABLET PO SCH (09:31)
[2018-10-18 12:00] VITALS: BP 108/57
[2018-10-18] MEDS ORDERED: POTASSIUM CHLORIDE 20MEQ TABLET SR PO NR (13:30)
[2018-10-18 16:00] VITALS: BP 142/54
[2018-10-18 16:42] VITALS: BP 142/54
[2018-10-18] MEDS ORDERED: APIXABAN 2.5 MG TABLET PO SCH (21:00)
[2018-10-18] MEDS ORDERED: AMLODIPINE 2.5MG TABLET PO SCH (21:00)
== END 2018-10-18 18:47 | DRG 445 ==
LOC: ER 18:33 → 5WST 22:33 → EDBEDREQ 22:39 → EDBEDREQTM 22:39 → ENRESERV 10-15 01:30
PROVIDERS: ADMIT Family Medicine Adult Medicine; ATTEND Family Medicine Adult Medicine
PROC: 0DB68ZX Excision of Stomach, Via Natural or Artificial Opening Endoscopic, Diagnostic (ICD-10-PCS; principal; 2018-10-17)
PROC: 0DJD8ZZ Inspection of Lower Intestinal Tract, Via Natural or Artificial Opening Endoscopic (ICD-10-PCS; 2018-10-17)
DX: K80.20 Calculus of gallbladder without cholecystitis without obstruction (principal); K57.32 Diverticulitis of large intestine without perforation or abscess without bleeding; I11.0 Hypertensive heart disease with heart failure; R35.1 Nocturia; I49.3 Ventricular premature depolarization; I44.0 Atrioventricular block, first degree; E78.00 Pure hypercholesterolemia, unspecified; K29.60 Other gastritis without bleeding; K44.9 Diaphragmatic hernia without obstruction or gangrene; K64.8 Other hemorrhoids; I48.0 Paroxysmal atrial fibrillation; I25.5 Ischemic cardiomyopathy; I25.10 Atherosclerotic heart disease of native coronary artery without angina pectoris; I50.9 Heart failure, unspecified; D50.9 Iron deficiency anemia, unspecified; I25.2 Old myocardial infarction; Z86.718 Personal history of other venous thrombosis and embolism; Z95.828 Presence of other vascular implants and grafts; Z87.440 Personal history of urinary (tract) infections; Z86.79 Personal history of other diseases of the circulatory system; Z87.891 Personal history of nicotine dependence; Z90.710 Acquired absence of both cervix and uterus; Z98.1 Arthrodesis status; Z79.01 Long term (current) use of anticoagulants; Z79.899 Other long term (current) drug therapy; Z88.0 Allergy status to penicillin
CPT/HCPCS: 36415; 71045; 76705; 80048; 80061; 80076; 83735; 84100; 84439; 84443; 84481; 84484; 88305; 88312; 88313; 93005; 93970; 96374; 96375; 97162; 99285; C1893; C9113; J0692; J1200; J1940; J2250; J2270; J2405; J3010; J3490; J7050; J7060

== ENCOUNTER 2021-08-05 13:07 | Inpatient (IN) | payer MEDICARE, MEDICAID ==
[~2021-08-05] VITALS: Ht 160 cm; Wt 61.3 kg
[~2021-08-05 13:07] MED LIST changes: +APIX5TAB PO; +BIMA2.5D4 EACHEYE; +BRIM.2 BOTHEYE; -BRIM10DR16 BOTHEYE; +DORZ10DR12 EACHEYE; +ESCI-7 PO; -ESCI10TA54 PO; +FERR325T6 MT; -GABA-531 PO; +GABA-532 PO; +LOSA50TA41 MT; +MIRT-89 PO; -MIRT15TA6 PO; +ROSU20TA2 MT
[2021-08-05] MEDS ORDERED: MORPHINE SULFATE 4 MG/ML CPJ (NOT FOR IM USE) IV STA (14:49)
[2021-08-05] MEDS ORDERED: ONDANSETRON HCL 4MG/2ML INJ IV STA (14:49)
[2021-08-05] MEDS ORDERED: VISCOUS LIDOCAINE 2% 15 ML UDC PO ONE (15:00)
[2021-08-05] MEDS ORDERED: MAGNESIUM/ALUMINUM HYDROXIDE/SIMETHICONE 30ML UDC PO ONE (15:00)
[2021-08-05 15:12] LABS: BASOPHILS % 0.7 % (0.0-2.0); EOSINOPHILS % 2.4 % (0.0-5.0); HEMATOCRIT. 32.7 % (36.0-48.0); HEMOGLOBIN. 10.4 g/dL (12.0-16.0); LYMPHOCYTES % 27.3 % (20.0-50.0); MEAN CORPUSCULAR HEMOGLOBIN 24.1 pg (28.0-32.0); MEAN CORPUSCULAR VOLUME 75.7 fL (81.0-99.0); MEAN PLATELET VOLUME 8.1 fl (7.4-10.4); MONOCYTES % 8.6 % (2.0-8.0); PLATELET 120 x1000/uL (130-400); RED BLOOD CELL COUNT 4.32 mill/uL (4.2-5.4); RED CELL DISTRIBUTION WIDTH 17.3 % (11.6-14.6)
[2021-08-05 15:14] LABS: CHLORIDE 107 mEq/L (98-107)
[2021-08-05 15:22] LABS: ETHANOL BLOOD < 10 mg/dL
[2021-08-05] MEDS: ASPIRIN 81MG TABLET PO NR ×2 (16:00→17:34)
[2021-08-05] MEDS ORDERED: NITROGLYCERIN OINT 1GM/INCH UDPKT TD NR (16:15)
[2021-08-05] MEDS ORDERED: FUROSEMIDE 40MG/4ML VIAL IVP NR (16:15)
[2021-08-05 17:45] VITALS: BP 159/64
[2021-08-05 20:00] VITALS: BP 129/63
[2021-08-05] MEDS ORDERED: MEDICATION NOT ON FORMULARY EA (Bimatoprost (Lumigan) 1 DROP) EACHEYE SCH (21:00)
[2021-08-05] MEDS ORDERED: FAMOTIDINE 40MG TABLET PO SCH (21:00)
[2021-08-05] MEDS: ATORVASTATIN CALCIUM 40MG TABLET PO SCH (21:27)
[2021-08-05] MEDS: FAMOTIDINE 20MG TABLET PO SCH (21:28)
[2021-08-05] MEDS: CARVEDILOL 12.5MG TABLET PO SCH (21:29)
[2021-08-05] MEDS: LATANOPROST 0.005% OPHTH DROPS 2.5ML EACHEYE SCH (21:30)
[2021-08-06] VITALS: BP 110/69
[2021-08-06 04:00] VITALS: BP 138/60
[2021-08-06] MEDS: FUROSEMIDE 20MG/2ML VIAL IVP SCH ×2 (05:34→17:00)
[2021-08-06 07:08] LABS: BASOPHILS % 0.8 % (0.0-2.0); EOSINOPHILS % 6.8 % (0.0-5.0); HEMATOCRIT. 32.1 % (36.0-48.0); HEMOGLOBIN. 9.9 g/dL (12.0-16.0); LYMPHOCYTES % 32.9 % (20.0-50.0); MEAN CORPUSCULAR HEMOGLOBIN 24.1 pg (28.0-32.0); MEAN CORPUSCULAR VOLUME 77.9 fL (81.0-99.0); MEAN PLATELET VOLUME 9.1 fl (7.4-10.4); MONOCYTES % 10.6 % (2.0-8.0); NEUTROPHILS % 48.9 % (40.0-76.0); PLATELET 131 x1000/uL (130-400); RED BLOOD CELL COUNT 4.11 mill/uL (4.2-5.4); RED CELL DISTRIBUTION WIDTH 17.8 % (11.6-14.6)
[2021-08-06 07:31] LABS: CHLORIDE 106 mEq/L (98-107)
[2021-08-06 08:00] VITALS: BP 125/50
[2021-08-06] MEDS: ASPIRIN 81MG TABLET PO SCH (08:28)
[2021-08-06] MEDS: LOSARTAN POTASSIUM 50 MG TABLET PO SCH (08:28)
[2021-08-06] MEDS: FERROUS SULFATE 325MG TABLET PO SCH ×2 (08:28→17:00)
[2021-08-06] MEDS: APIXABAN 5 MG TABLET PO SCH ×2 (08:28→17:00)
[2021-08-06] MEDS: GABAPENTIN 300MG CAPSULE PO SCH ×3 (08:29→17:00)
[2021-08-06] MEDS: CARVEDILOL 12.5MG TABLET PO SCH ×2 (08:29→20:37)
[2021-08-06 08:57] LABS: HDL CHOLESTEROL 53 mg/dL (40-59); LDL CHOLESTEROL 82 mg/dL (5-100)
[2021-08-06] MEDS ORDERED: MEDICATION NOT ON FORMULARY EA (Ferrous Sulfate 1 TAB) MT SCH (09:00)
[2021-08-06] MEDS ORDERED: CARVEDILOL 25 MG PO SCH (09:00)
[2021-08-06] MEDS: ISOSORBIDE MONONITRATE 60MG TABLET SR 24HR PO SCH (09:00)
[2021-08-06] MEDS: CITALOPRAM HYDROBROMIDE 10MG TABLET PO SCH ×2 (09:00→17:02)
[2021-08-06] MEDS ORDERED: MEDICATION NOT ON FORMULARY EA (Escitalopram Oxalate 10 MG) PO SCH (09:00)
[2021-08-06 11:27] LABS: *AMPHETAMINES SCREEN URINE NEGATIVE (NEGATIVE); *BARBITURATES SCREEN URINE NEGATIVE (NEGATIVE); *BENZODIAZEPINES SCREEN URINE NEGATIVE (NEGATIVE); *COCAINE SCREEN URINE NEGATIVE (NEGATIVE); CANNABINOID URINE SCREEN NEGATIVE (NEGATIVE); METHADONE URINE SCREEN NEGATIVE (NEGATIVE); OPIATES URINE SCREEN PRESUMTIVE POSITIVE (NEGATIVE); PHENCYCLIDINE URINE SCREEN NEGATIVE (NEGATIVE)
[2021-08-06] MEDS: BRIMONIDINE 0.2% OPHTH DROPS 5ML BOTHEYE SCH ×3 (11:28→17:00)
[2021-08-06] MEDS: DORZOLAM/TIMOLOL 2.23/0.68% OPHTH DROPS 10ML EACHEYE SCH ×2 (11:28→16:59)
[2021-08-06] MEDS: ACETAMINOPHEN 325MG TABLET PO PRN (11:35)
[2021-08-06 12:00] VITALS: BP 152/70
[2021-08-06 16:00] VITALS: BP 132/59
[2021-08-06] MEDS: MIRTAZAPINE 15MG TABLET PO SCH (17:00)
[2021-08-06 20:00] VITALS: BP 108/32
[2021-08-06] MEDS: ATORVASTATIN CALCIUM 40MG TABLET PO SCH (20:47)
[2021-08-06] MEDS: LATANOPROST 0.005% OPHTH DROPS 2.5ML EACHEYE SCH (20:47)
[2021-08-06] MEDS: FAMOTIDINE 20MG TABLET PO SCH (20:47)
[2021-08-07] VITALS (58 sets, daily range): BP systolic 51–162; BP diastolic 24–89
[2021-08-07] MEDS: FUROSEMIDE 20MG/2ML VIAL IVP SCH ×2 (06:09→17:22)
[2021-08-07 07:00] LABS: BASOPHILS % 0.8 % (0.0-2.0); EOSINOPHILS % 5.4 % (0.0-5.0); HEMATOCRIT. 34.3 % (36.0-48.0); HEMOGLOBIN. 11.1 g/dL (12.0-16.0); LYMPHOCYTES % 44.9 % (20.0-50.0); MEAN CORPUSCULAR HEMOGLOBIN 24.6 pg (28.0-32.0); MEAN PLATELET VOLUME 8.7 fl (7.4-10.4); MONOCYTES % 12.4 % (2.0-8.0); NEUTROPHILS % 36.5 % (40.0-76.0); PLATELET 136 x1000/uL (130-400); RED BLOOD CELL COUNT 4.51 mill/uL (4.2-5.4); RED CELL DISTRIBUTION WIDTH 17.6 % (11.6-14.6)
[2021-08-07] MEDS: ASPIRIN 81MG TABLET PO SCH (08:29)
[2021-08-07] MEDS: APIXABAN 5 MG TABLET PO SCH (08:32)
[2021-08-07] MEDS: LOSARTAN POTASSIUM 50 MG TABLET PO SCH (08:32)
[2021-08-07] MEDS: CITALOPRAM HYDROBROMIDE 10MG TABLET PO SCH (08:32)
[2021-08-07] MEDS: GABAPENTIN 300MG CAPSULE PO SCH ×3 (08:32→17:22)
[2021-08-07] MEDS: BRIMONIDINE 0.2% OPHTH DROPS 5ML BOTHEYE SCH ×3 (08:33→17:22)
[2021-08-07] MEDS: FERROUS SULFATE 325MG TABLET PO SCH ×2 (08:33→17:22)
[2021-08-07] MEDS: ISOSORBIDE MONONITRATE 60MG TABLET SR 24HR PO SCH (08:33)
[2021-08-07] MEDS: CARVEDILOL 12.5MG TABLET PO SCH (08:33)
[2021-08-07] MEDS: DORZOLAM/TIMOLOL 2.23/0.68% OPHTH DROPS 10ML EACHEYE SCH (08:34)
[2021-08-07] MEDS ORDERED: ATROPINE SULFATE 1MG/10ML SYR ONE (09:28)
[2021-08-07] MEDS ORDERED: EPINEPHRINE 0.1MG/ML (1:10,000) 10ML SYR ONE (09:28)
[2021-08-07] MEDS ORDERED: DOBUTAMINE 500MG PREMIX 250 ML IV PRN (10:30)
[2021-08-07 10:31] LABS: BG BASE EXCESS 4.4 mmol/L (-2.0-2.0); BG CARBOXYHEMOGLOBIN 0.5 % (0.5-1.5); BG DEOXYHEMOGLOBIN 0.4 % (0.0-5.0); BG FRACTION INSPIRED OXYGEN 100; BG HCO3 ACT 29.4 mmol/L (22.0-26.0); BG METHEMOGLOBIN 0.3 % (0.0-1.5); BG OXYGEN SATURATION 99.6 % (92.0-98.5); BG OXYHEMOGLOBIN 98.8 % (94.0-97.0); BG PCO2 45.9 mmHg (35.0-45.0); BG PH 7.424 (7.350-7.450); BG PO2 243.5 mmHg (75.0-100.0); BG SAMPLE SITE RIGHT RADIAL; BG TOTAL HEMOGLOBIN 10.7 g/dL (12.0-18.0); BG VENT MODE MASK - NRB
[2021-08-07] MEDS ORDERED: SODIUM CHLORIDE 0.9% 500 ML IV ONE (10:45)
[2021-08-07] MEDS: DOPAMINE 400MG/250ML PREMIX 250 ML IV PRN ×2 (11:16→19:28)
[2021-08-07] MEDS: MIRTAZAPINE 15MG TABLET PO SCH (17:22)
[2021-08-07] MEDS: HYDROCODONE/ACETAMINOPHEN 5/325MG TABLET PO PRN (18:28)
[2021-08-07] MEDS ORDERED: NALOXONE HCL 0.4MG/ML VIAL IV PRN (18:30)
[2021-08-07] MEDS: FAMOTIDINE 20MG TABLET PO SCH (20:12)
[2021-08-07] MEDS: LATANOPROST 0.005% OPHTH DROPS 2.5ML EACHEYE SCH (20:36)
[2021-08-07] MEDS: ATORVASTATIN CALCIUM 40MG TABLET PO SCH (21:00)
[2021-08-08] VITALS (96 sets, daily range): BP systolic 73–206; BP diastolic 38–93
[2021-08-08 05:31] LABS: BASOPHILS % 0.6 % (0.0-2.0); EOSINOPHILS % 3.5 % (0.0-5.0); HEMATOCRIT. 34.6 % (36.0-48.0); HEMOGLOBIN. 11.1 g/dL (12.0-16.0); LYMPHOCYTES % 29.7 % (20.0-50.0); MEAN CORPUSCULAR HEMOGLOBIN 24.3 pg (28.0-32.0); MEAN CORPUSCULAR VOLUME 75.9 fL (81.0-99.0); MEAN PLATELET VOLUME 8.8 fl (7.4-10.4); MONOCYTES % 10.7 % (2.0-8.0); NEUTROPHILS % 55.5 % (40.0-76.0); PLATELET 138 x1000/uL (130-400); RED BLOOD CELL COUNT 4.56 mill/uL (4.2-5.4); RED CELL DISTRIBUTION WIDTH 16.9 % (11.6-14.6)
[2021-08-08] MEDS: FUROSEMIDE 20MG/2ML VIAL IVP SCH ×2 (06:21→17:40)
[2021-08-08] MEDS: DOPAMINE 400MG/250ML PREMIX 250 ML IV PRN ×2 (07:25→22:35)
[2021-08-08] MEDS: BRIMONIDINE 0.2% OPHTH DROPS 5ML BOTHEYE SCH ×3 (08:24→17:41)
[2021-08-08] MEDS: CITALOPRAM HYDROBROMIDE 10MG TABLET PO SCH (08:25)
[2021-08-08] MEDS: FERROUS SULFATE 325MG TABLET PO SCH ×2 (08:25→17:41)
[2021-08-08] MEDS: MULTIVITAMINS,THER W-MINERALS TABLET PO SCH (08:25)
[2021-08-08] MEDS: ASPIRIN 81MG TABLET PO SCH (08:25)
[2021-08-08] MEDS: HYDROCODONE/ACETAMINOPHEN 5/325MG TABLET PO PRN (08:25)
[2021-08-08] MEDS: GABAPENTIN 300MG CAPSULE PO SCH ×3 (08:25→17:41)
[2021-08-08] MEDS: LOSARTAN POTASSIUM 50 MG TABLET PO SCH (08:26)
[2021-08-08] MEDS ORDERED: MIDODRINE HCL 5MG TABLET PO SCH (13:00)
[2021-08-08] MEDS: MIRTAZAPINE 15MG TABLET PO SCH (17:40)
[2021-08-08] MEDS: MIDODRINE HCL 5MG TABLET PO SCH (17:41)
[2021-08-08] MEDS: FAMOTIDINE 20MG TABLET PO SCH (20:26)
[2021-08-08] MEDS: LATANOPROST 0.005% OPHTH DROPS 2.5ML EACHEYE SCH (20:28)
[2021-08-08] MEDS: ATORVASTATIN CALCIUM 40MG TABLET PO SCH (20:38)
[2021-08-09] VITALS (91 sets, daily range): BP systolic 82–167; BP diastolic 30–87
[2021-08-09 05:52] LABS: BASOPHILS % 0.6 % (0.0-2.0); EOSINOPHILS % 4.4 % (0.0-5.0); HEMATOCRIT. 33.1 % (36.0-48.0); HEMOGLOBIN. 10.5 g/dL (12.0-16.0); LYMPHOCYTES % 28.2 % (20.0-50.0); MEAN CORPUSCULAR HEMOGLOBIN 24.3 pg (28.0-32.0); MEAN CORPUSCULAR VOLUME 76.4 fL (81.0-99.0); MEAN PLATELET VOLUME 8.5 fl (7.4-10.4); MONOCYTES % 9.1 % (2.0-8.0); NEUTROPHILS % 57.7 % (40.0-76.0); PLATELET 133 x1000/uL (130-400); RED BLOOD CELL COUNT 4.34 mill/uL (4.2-5.4)
[2021-08-09 05:59] LABS: CHLORIDE 105 mEq/L (98-107)
[2021-08-09] MEDS: FUROSEMIDE 20MG/2ML VIAL IVP SCH ×2 (06:00→18:07)
[2021-08-09] MEDS ORDERED: LIDOCAINE HCL 1% 20ML VIAL (Pyxis) INJ ONE (07:15)
[2021-08-09] MEDS: CITALOPRAM HYDROBROMIDE 10MG TABLET PO SCH (08:38)
[2021-08-09] MEDS: MULTIVITAMINS,THER W-MINERALS TABLET PO SCH (08:38)
[2021-08-09] MEDS: GABAPENTIN 300MG CAPSULE PO SCH ×3 (08:38→18:04)
[2021-08-09] MEDS: ASPIRIN 81MG TABLET PO SCH (08:39)
[2021-08-09] MEDS: FERROUS SULFATE 325MG TABLET PO SCH ×2 (08:39→18:05)
[2021-08-09] MEDS: MIDODRINE HCL 5MG TABLET PO SCH ×3 (08:39→18:05)
[2021-08-09] MEDS: BRIMONIDINE 0.2% OPHTH DROPS 5ML BOTHEYE SCH ×3 (08:40→18:05)
[2021-08-09] MEDS: LOSARTAN POTASSIUM 50 MG TABLET PO SCH (09:00)
[2021-08-09] MEDS ORDERED: NA PHOS,M-B/NA PHOS,DI-BA ENEMA 118ML PR NR (10:43)
[2021-08-09] MEDS: MIRTAZAPINE 15MG TABLET PO SCH (18:05)
[2021-08-09] MEDS: ATORVASTATIN CALCIUM 40MG TABLET PO SCH (21:00)
[2021-08-09] MEDS: FAMOTIDINE 20MG TABLET PO SCH (21:35)
[2021-08-09] MEDS: LATANOPROST 0.005% OPHTH DROPS 2.5ML EACHEYE SCH (21:36)
[2021-08-10] VITALS (44 sets, daily range): BP systolic 72–167; BP diastolic 34–94
[2021-08-10 06:30] LABS: BASOPHILS % 0.7 % (0.0-2.0); EOSINOPHILS % 5.4 % (0.0-5.0); HEMATOCRIT. 33.4 % (36.0-48.0); HEMOGLOBIN. 10.7 g/dL (12.0-16.0); MEAN CORPUSCULAR HEMOGLOBIN 24.1 pg (28.0-32.0); MEAN CORPUSCULAR VOLUME 75.3 fL (81.0-99.0); MEAN PLATELET VOLUME 8.9 fl (7.4-10.4); MONOCYTES % 11.2 % (2.0-8.0); NEUTROPHILS % 52.7 % (40.0-76.0); PLATELET 141 x1000/uL (130-400); RED BLOOD CELL COUNT 4.43 mill/uL (4.2-5.4); RED CELL DISTRIBUTION WIDTH 17.3 % (11.6-14.6)
[2021-08-10] MEDS: FUROSEMIDE 20MG/2ML VIAL IVP SCH ×2 (06:47→18:04)
[2021-08-10 07:05] LABS: CHLORIDE 105 mEq/L (98-107)
[2021-08-10] MEDS: MULTIVITAMINS,THER W-MINERALS TABLET PO SCH (08:59)
[2021-08-10] MEDS: CITALOPRAM HYDROBROMIDE 10MG TABLET PO SCH (08:59)
[2021-08-10] MEDS: GABAPENTIN 300MG CAPSULE PO SCH ×3 (08:59→18:05)
[2021-08-10] MEDS: FERROUS SULFATE 325MG TABLET PO SCH ×2 (08:59→18:04)
[2021-08-10] MEDS: BRIMONIDINE 0.2% OPHTH DROPS 5ML BOTHEYE SCH ×3 (08:59→17:00)
[2021-08-10] MEDS: LOSARTAN POTASSIUM 50 MG TABLET PO SCH (09:00)
[2021-08-10] MEDS ORDERED: MIDODRINE HCL 5MG TABLET PO SCH (10:15)
[2021-08-10] MEDS: MIDODRINE HCL 5MG TABLET PO SCH ×3 (10:19→18:05)
[2021-08-10] MEDS ORDERED: LIDOCAINE HCL 1% 20ML VIAL (Pyxis) INJ ONE (14:32)
[2021-08-10] MEDS: MIRTAZAPINE 15MG TABLET PO SCH (18:04)
[2021-08-10] MEDS: ATORVASTATIN CALCIUM 40MG TABLET PO SCH (20:20)
[2021-08-10] MEDS: LATANOPROST 0.005% OPHTH DROPS 2.5ML EACHEYE SCH ×2 (21:00→21:29)
[2021-08-10 21:09] LABS: HEMATOCRIT 34.9 % (36.0-48.0); HEMOGLOBIN 11.1 g/dL (12.0-16.0); MEAN CORPUSCULAR HEMOGLOBIN 23.9 pg (28.0-32.0); MEAN CORPUSCULAR VOLUME 75.2 fL (81.0-99.0); PLATELET 152 x1000/uL (130-400); RED BLOOD CELL COUNT 4.64 mill/uL (4.2-5.4); RED CELL DISTRIBUTION WIDTH 16.9 % (11.6-14.6)
[2021-08-10] MEDS: FAMOTIDINE 20MG TABLET PO SCH (21:25)
[2021-08-10] MEDS: HYDROCODONE/ACETAMINOPHEN 5/325MG TABLET PO PRN (21:28)
[2021-08-11] VITALS (39 sets, daily range): BP systolic 95–152; BP diastolic 39–84
[2021-08-11] MEDS: FUROSEMIDE 20MG/2ML VIAL IVP SCH ×3 (06:00→17:20)
[2021-08-11 06:25] LABS: BASOPHILS % 0.6 % (0.0-2.0); HEMATOCRIT. 32.4 % (36.0-48.0); HEMOGLOBIN. 10.4 g/dL (12.0-16.0); LYMPHOCYTES % 30.5 % (20.0-50.0); MEAN CORPUSCULAR HEMOGLOBIN 24.3 pg (28.0-32.0); MEAN CORPUSCULAR VOLUME 75.9 fL (81.0-99.0); MEAN PLATELET VOLUME 9.3 fl (7.4-10.4); MONOCYTES % 14.2 % (2.0-8.0); NEUTROPHILS % 49.7 % (40.0-76.0); PLATELET 145 x1000/uL (130-400); RED BLOOD CELL COUNT 4.27 mill/uL (4.2-5.4); RED CELL DISTRIBUTION WIDTH 17.1 % (11.6-14.6)
[2021-08-11] MEDS ORDERED: VANCOMYCIN 1GM PMX (XELLIA) 200 ML IV SCH (08:15)
[2021-08-11] MEDS ORDERED: VANCOMYCIN 1G PREMIX 200 ML IV ONE (08:15)
[2021-08-11] MEDS ORDERED: LIDOCAINE HCL 1% 20ML VIAL (Pyxis) INJ ONE ×2 (08:27→08:34)
[2021-08-11] MEDS ORDERED: PROPOFOL 200MG/20ML VIAL IV ONE (08:27)
[2021-08-11] MEDS ORDERED: EPHEDRINE SULFATE 50MG/ML VIAL ONE (08:27)
[2021-08-11] MEDS ORDERED: GLYCOPYRROLATE 0.2 MG/ML 2ML VIAL ONE (08:28)
[2021-08-11] MEDS ORDERED: PHENYLEPHRINE HCL 10 MG/ML 1ML (IV VIAL) IV ONE (08:28)
[2021-08-11] MEDS ORDERED: GENTAMICIN/NS IRRIGATION 500 ML IR ONE (08:37)
[2021-08-11] MEDS ORDERED: IODIXANOL 320MG/ML 100 ML BOTTLE IV ONE (08:40)
[2021-08-11] MEDS ORDERED: DOPAMINE 400MG/250ML PREMIX 250 ML IV ONE (08:50)
[2021-08-11] MEDS: GABAPENTIN 300MG CAPSULE PO SCH ×3 (09:00→17:09)
[2021-08-11] MEDS: LOSARTAN POTASSIUM 50 MG TABLET PO SCH (09:00)
[2021-08-11] MEDS: MIDODRINE HCL 5MG TABLET PO SCH ×3 (09:00→17:09)
[2021-08-11] MEDS: MULTIVITAMINS,THER W-MINERALS TABLET PO SCH (09:00)
[2021-08-11] MEDS: BRIMONIDINE 0.2% OPHTH DROPS 5ML BOTHEYE SCH ×3 (09:00→17:20)
[2021-08-11] MEDS: CITALOPRAM HYDROBROMIDE 10MG TABLET PO SCH (09:00)
[2021-08-11] MEDS ORDERED: VASOPRESSIN 20 UNIT/ML 1ML IV SCH (09:00)
[2021-08-11] MEDS: FERROUS SULFATE 325MG TABLET PO SCH ×2 (09:00→17:09)
[2021-08-11] MEDS ORDERED: GENTAMICIN SULF 40MG/ML 2ML VIAL ONE (11:09)
[2021-08-11] MEDS: ACETAMINOPHEN 325MG TABLET PO PRN (12:11)
[2021-08-11 13:40] LABS: INR 1.3; PROTHROMBIN TIME 13.5 sec (9.6-11.0)
[2021-08-11] MEDS: MIRTAZAPINE 15MG TABLET PO SCH (17:09)
[2021-08-11] MEDS: HYDROCODONE/ACETAMINOPHEN 5/325MG TABLET PO PRN (17:45)
[2021-08-11] MEDS: LATANOPROST 0.005% OPHTH DROPS 2.5ML EACHEYE SCH (21:00)
[2021-08-11] MEDS: ATORVASTATIN CALCIUM 40MG TABLET PO SCH (21:00)
[2021-08-11] MEDS: FAMOTIDINE 20MG TABLET PO SCH (21:30)
[2021-08-12] VITALS (39 sets, daily range): BP systolic 82–175; BP diastolic 47–150
[2021-08-12] MEDS: HYDROCODONE/ACETAMINOPHEN 5/325MG TABLET PO PRN ×3 (00:11→20:57)
[2021-08-12] MEDS: FUROSEMIDE 20MG/2ML VIAL IVP SCH ×2 (06:00→17:25)
[2021-08-12 06:26] LABS: BASOPHILS % 0.6 % (0.0-2.0); HEMATOCRIT. 31.5 % (36.0-48.0); LYMPHOCYTES % 26.2 % (20.0-50.0); MEAN CORPUSCULAR HEMOGLOBIN 24.3 pg (28.0-32.0); MEAN CORPUSCULAR VOLUME 76.2 fL (81.0-99.0); MEAN PLATELET VOLUME 9.1 fl (7.4-10.4); MONOCYTES % 12.1 % (2.0-8.0); NEUTROPHILS % 55.1 % (40.0-76.0); PLATELET 124 x1000/uL (130-400); RED BLOOD CELL COUNT 4.13 mill/uL (4.2-5.4); RED CELL DISTRIBUTION WIDTH 16.7 % (11.6-14.6)
[2021-08-12 06:32] LABS: CHLORIDE 102 mEq/L (98-107)
[2021-08-12] MEDS: MULTIVITAMINS,THER W-MINERALS TABLET PO SCH (08:52)
[2021-08-12] MEDS: GABAPENTIN 300MG CAPSULE PO SCH ×3 (08:53→17:25)
[2021-08-12] MEDS: CITALOPRAM HYDROBROMIDE 10MG TABLET PO SCH (08:53)
[2021-08-12] MEDS: FERROUS SULFATE 325MG TABLET PO SCH ×2 (08:53→17:25)
[2021-08-12] MEDS: LOSARTAN POTASSIUM 50 MG TABLET PO SCH (08:56)
[2021-08-12] MEDS: BRIMONIDINE 0.2% OPHTH DROPS 5ML BOTHEYE SCH ×3 (08:57→17:24)
[2021-08-12] MEDS: MIRTAZAPINE 15MG TABLET PO SCH (17:25)
[2021-08-12] MEDS ORDERED: NALOXONE HCL 0.4 MG/ML 1ML VIAL IV PRN (19:00)
[2021-08-12] MEDS: LATANOPROST 0.005% OPHTH DROPS 2.5ML EACHEYE SCH (20:48)
[2021-08-12] MEDS: ATORVASTATIN CALCIUM 40MG TABLET PO SCH (20:49)
[2021-08-12] MEDS: FAMOTIDINE 20MG TABLET PO SCH (20:56)
[2021-08-13] VITALS (27 sets, daily range): BP systolic 80–123; BP diastolic 28–74
[2021-08-13] MEDS: HYDROCODONE/ACETAMINOPHEN 5/325MG TABLET PO PRN (01:01)
[2021-08-13] MEDS: FUROSEMIDE 20MG/2ML VIAL IVP SCH ×2 (06:00→09:13)
[2021-08-13 06:19] LABS: BASOPHILS % 0.3 % (0.0-2.0); EOSINOPHILS % 3.7 % (0.0-5.0); HEMATOCRIT. 26.5 % (36.0-48.0); HEMOGLOBIN. 8.5 g/dL (12.0-16.0); LYMPHOCYTES % 28.5 % (20.0-50.0); MEAN CORPUSCULAR HEMOGLOBIN 24.1 pg (28.0-32.0); MEAN CORPUSCULAR VOLUME 75.1 fL (81.0-99.0); MEAN PLATELET VOLUME 9.2 fl (7.4-10.4); MONOCYTES % 11.9 % (2.0-8.0); NEUTROPHILS % 55.6 % (40.0-76.0); PLATELET 108 x1000/uL (130-400); RED BLOOD CELL COUNT 3.53 mill/uL (4.2-5.4); RED CELL DISTRIBUTION WIDTH 16.7 % (11.6-14.6)
[2021-08-13] MEDS: BRIMONIDINE 0.2% OPHTH DROPS 5ML BOTHEYE SCH ×2 (09:00→17:00)
[2021-08-13] MEDS: CITALOPRAM HYDROBROMIDE 10MG TABLET PO SCH (09:12)
[2021-08-13] MEDS: FERROUS SULFATE 325MG TABLET PO SCH ×2 (09:12→17:00)
[2021-08-13] MEDS: GABAPENTIN 300MG CAPSULE PO SCH ×3 (09:12→17:00)
[2021-08-13] MEDS: MULTIVITAMINS,THER W-MINERALS TABLET PO SCH (09:12)
[2021-08-13] MEDS: LOSARTAN POTASSIUM 25 MG TABLET PO SCH (09:12)
[2021-08-13] MEDS ORDERED: IBUPROFEN 600MG TABLET PO PRN (14:00)
[2021-08-13] MEDS ORDERED: MIDODRINE HCL 5MG TABLET PO NR (16:15)
[2021-08-13] MEDS: MIRTAZAPINE 15MG TABLET PO SCH (17:00)
[2021-08-13] MEDS: MEGESTROL ACETATE 400 MG/10 ML UDC PO SCH (20:06)
[2021-08-13] MEDS: ATORVASTATIN CALCIUM 40MG TABLET PO SCH (20:06)
[2021-08-13] MEDS: MIDODRINE HCL 5MG TABLET PO SCH (20:06)
[2021-08-13] MEDS: FAMOTIDINE 20MG TABLET PO SCH (20:07)
[2021-08-13] MEDS: LATANOPROST 0.005% OPHTH DROPS 2.5ML EACHEYE SCH (20:17)
[2021-08-14] VITALS (10 sets, daily range): BP systolic 94–136; BP diastolic 41–71
[2021-08-14 05:48] LABS: BASOPHILS % 0.4 % (0.0-2.0); EOSINOPHILS % 6.5 % (0.0-5.0); HEMOGLOBIN. 7.9 g/dL (12.0-16.0); LYMPHOCYTES % 29.6 % (20.0-50.0); MEAN CORPUSCULAR HEMOGLOBIN 24.5 pg (28.0-32.0); MEAN CORPUSCULAR VOLUME 74.9 fL (81.0-99.0); MEAN PLATELET VOLUME 9.1 fl (7.4-10.4); NEUTROPHILS % 51.5 % (40.0-76.0); PLATELET 104 x1000/uL (130-400); RED BLOOD CELL COUNT 3.21 mill/uL (4.2-5.4); RED CELL DISTRIBUTION WIDTH 16.7 % (11.6-14.6)
[2021-08-14] MEDS: FUROSEMIDE 20MG/2ML VIAL IVP SCH ×2 (05:48→17:57)
[2021-08-14] MEDS: BRIMONIDINE 0.2% OPHTH DROPS 5ML BOTHEYE SCH ×4 (09:00→17:57)
[2021-08-14] MEDS: MIDODRINE HCL 5MG TABLET PO SCH ×4 (09:00→17:57)
[2021-08-14] MEDS: FERROUS SULFATE 325MG TABLET PO SCH ×2 (09:25→17:57)
[2021-08-14] MEDS: MEGESTROL ACETATE 400 MG/10 ML UDC PO SCH (09:25)
[2021-08-14] MEDS: LOSARTAN POTASSIUM 25 MG TABLET PO SCH (09:25)
[2021-08-14] MEDS: MULTIVITAMINS,THER W-MINERALS TABLET PO SCH (09:26)
[2021-08-14] MEDS: ACETAMINOPHEN 325MG TABLET PO PRN (14:22)
[2021-08-14] MEDS ORDERED: PREDNISONE 10MG TABLET PO NR (16:00)
[2021-08-14] MEDS: LATANOPROST 0.005% OPHTH DROPS 2.5ML EACHEYE SCH (21:00)
[2021-08-14] MEDS: FAMOTIDINE 20MG TABLET PO SCH (21:31)
[2021-08-14] MEDS: ATORVASTATIN CALCIUM 40MG TABLET PO SCH (21:31)
[2021-08-15] VITALS (13 sets, daily range): BP systolic 111–147; BP diastolic 51–95
[2021-08-15 06:11] LABS: BASOPHILS % 0.5 % (0.0-2.0); HEMATOCRIT. 26.3 % (36.0-48.0); HEMOGLOBIN. 8.6 g/dL (12.0-16.0); LYMPHOCYTES % 19.9 % (20.0-50.0); MEAN CORPUSCULAR HEMOGLOBIN 24.6 pg (28.0-32.0); MEAN CORPUSCULAR VOLUME 75.6 fL (81.0-99.0); MEAN PLATELET VOLUME 9.2 fl (7.4-10.4); MONOCYTES % 7.1 % (2.0-8.0); NEUTROPHILS % 72.5 % (40.0-76.0); PLATELET 117 x1000/uL (130-400); RED BLOOD CELL COUNT 3.48 mill/uL (4.2-5.4); RED CELL DISTRIBUTION WIDTH 16.5 % (11.6-14.6)
[2021-08-15] MEDS: FUROSEMIDE 20MG/2ML VIAL IVP SCH ×2 (06:50→17:39)
[2021-08-15] MEDS: MEGESTROL ACETATE 400 MG/10 ML UDC PO SCH (09:59)
[2021-08-15] MEDS: FERROUS SULFATE 325MG TABLET PO SCH ×2 (09:59→17:40)
[2021-08-15] MEDS: MULTIVITAMINS,THER W-MINERALS TABLET PO SCH (09:59)
[2021-08-15] MEDS: BRIMONIDINE 0.2% OPHTH DROPS 5ML BOTHEYE SCH ×3 (09:59→17:00)
[2021-08-15] MEDS: MIDODRINE HCL 5MG TABLET PO SCH ×3 (09:59→17:40)
[2021-08-15] MEDS: ACETAMINOPHEN 325MG TABLET PO PRN (17:30)
[2021-08-15] MEDS: ATORVASTATIN CALCIUM 40MG TABLET PO SCH (20:49)
[2021-08-15] MEDS: LATANOPROST 0.005% OPHTH DROPS 2.5ML EACHEYE SCH (20:49)
[2021-08-15] MEDS: FAMOTIDINE 20MG TABLET PO SCH (20:49)
== END 2021-08-15 23:30 | DRG 224 ==
LOC: ER 13:07 → EDBEDREQ 16:26 → ENRESERV 16:48 → EDBEDREQTM 17:41 → EDBEDREQ 17:41 → EDBEDREQSVC 18:23 → 7WST 18:42 → CVICU 08-07 11:08 → 5EST 08-12 19:14
PROVIDERS: ADMIT Family Medicine Adult Medicine; ATTEND Family Medicine Adult Medicine
PROC: 5A12012 Performance of Cardiac Output, Single, Manual (ICD-10-PCS; principal; 2021-08-07)
PROC: 05HY33Z Insertion of Infusion Device into Upper Vein, Percutaneous Approach (ICD-10-PCS; 2021-08-09)
PROC: B54MZZA Ultrasonography of Right Upper Extremity Veins, Guidance (ICD-10-PCS; 2021-08-09)
PROC: 05H533Z Insertion of Infusion Device into Right Subclavian Vein, Percutaneous Approach (ICD-10-PCS; 2021-08-10)
PROC: 0JH609Z Insertion of Cardiac Resynchronization Defibrillator Pulse Generator into Chest Subcutaneous Tissue and Fascia, Open Approach (ICD-10-PCS; 2021-08-11)
PROC: 02HK3KZ Insertion of Defibrillator Lead into Right Ventricle, Percutaneous Approach (ICD-10-PCS; 2021-08-11)
PROC: 02HL3KZ Insertion of Defibrillator Lead into Left Ventricle, Percutaneous Approach (ICD-10-PCS; 2021-08-11)
PROC: 02H63KZ Insertion of Defibrillator Lead into Right Atrium, Percutaneous Approach (ICD-10-PCS; 2021-08-11)
PROC: 4A023N6 Measurement of Cardiac Sampling and Pressure, Right Heart, Percutaneous Approach (ICD-10-PCS; 2021-08-11)
PROC: B5171ZZ Fluoroscopy of Left Subclavian Vein using Low Osmolar Contrast (ICD-10-PCS; 2021-08-11)
DX: I44.2 Atrioventricular block, complete (principal); I50.23 Acute on chronic systolic (congestive) heart failure; J96.00 Acute respiratory failure, unspecified whether with hypoxia or hypercapnia; I46.9 Cardiac arrest, cause unspecified; E44.1 Mild protein-calorie malnutrition; I42.9 Cardiomyopathy, unspecified; G82.20 Paraplegia, unspecified; I11.0 Hypertensive heart disease with heart failure; E78.00 Pure hypercholesterolemia, unspecified; I45.9 Conduction disorder, unspecified; I48.0 Paroxysmal atrial fibrillation; I71.4 Abdominal aortic aneurysm, without rupture; D64.9 Anemia, unspecified; E78.5 Hyperlipidemia, unspecified; K80.20 Calculus of gallbladder without cholecystitis without obstruction; I25.10 Atherosclerotic heart disease of native coronary artery without angina pectoris; Z20.822 Contact with and (suspected) exposure to COVID-19; R00.1 Bradycardia, unspecified; M17.10 Unilateral primary osteoarthritis, unspecified knee; G89.4 Chronic pain syndrome; M54.50 Low back pain, unspecified; D72.829 Elevated white blood cell count, unspecified; R13.10 Dysphagia, unspecified; I25.2 Old myocardial infarction; Z90.710 Acquired absence of both cervix and uterus; Z79.01 Long term (current) use of anticoagulants; Z86.718 Personal history of other venous thrombosis and embolism; Z87.891 Personal history of nicotine dependence; Z91.14 Patient's other noncompliance with medication regimen; Z91.19 Patient's noncompliance with other medical treatment and regimen; Z95.828 Presence of other vascular implants and grafts; Z88.0 Allergy status to penicillin; Z79.899 Other long term (current) drug therapy; Z68.23 Body mass index [BMI] 23.0-23.9, adult; Z95.0 Presence of cardiac pacemaker; Z86.79 Personal history of other diseases of the circulatory system; M79.609 Pain in unspecified limb; R53.81 Other malaise; R26.9 Unspecified abnormalities of gait and mobility; I95.9 Hypotension, unspecified; I25.5 Ischemic cardiomyopathy
CPT/HCPCS: 33225; 33249; 36415; 36600; 71045; 75820; 76937; 80048; 80053; 80061; 80305; 80320; 82375; 82805; 82962; 83735; 83880; 84484; 85025; 85027; 86850; 86900; 87426; 92610; 93005; 93306; 93451; 93640; 97162; 97166; 97530; 99291; C1725; C1769; C1882; C1892; C1893; C1898; C1899; C1900; J0461; J1265; J1580; J1644; J1940; J2270; J2370; J2405; J2704; J3370; J3490; J7512; Q9967; G0480

== ENCOUNTER 2021-08-15 23:30 | Inpatient (IN) | payer MEDICARE, MEDICAID ==
[~2021-08-15] VITALS: Ht 160 cm; Wt 60.6 kg
[2021-08-15 23:30] VITALS: BP 132/50
[2021-08-16] VITALS: BP 126/82
[2021-08-16 02:51] VITALS: BP 132/50
[2021-08-16 06:45] LABS: BASOPHILS % 0.6 % (0.0-2.0); EOSINOPHILS % 4.4 % (0.0-5.0); HEMATOCRIT. 27.6 % (36.0-48.0); HEMOGLOBIN. 8.9 g/dL (12.0-16.0); LYMPHOCYTES % 32.9 % (20.0-50.0); MEAN CORPUSCULAR HEMOGLOBIN 24.2 pg (28.0-32.0); MEAN CORPUSCULAR VOLUME 75.4 fL (81.0-99.0); MEAN PLATELET VOLUME 9.1 fl (7.4-10.4); MONOCYTES % 12.5 % (2.0-8.0); NEUTROPHILS % 49.6 % (40.0-76.0); PLATELET 130 x1000/uL (130-400); RED BLOOD CELL COUNT 3.67 mill/uL (4.2-5.4)
[2021-08-16 06:48] LABS: CHLORIDE 102 mEq/L (98-107)
[2021-08-16 08:00] VITALS: BP 144/64
[2021-08-16] MEDS: BRIMONIDINE 0.2% OPHTH DROPS 5ML BOTHEYE SCH ×3 (09:00→17:05)
[2021-08-16] MEDS ORDERED: APIXABAN 5 MG TABLET PO SCH (09:00)
[2021-08-16] MEDS ORDERED: ASPIRIN 81MG TABLET PO SCH (09:00)
[2021-08-16] MEDS ORDERED: LOSARTAN POTASSIUM 25 MG TABLET PO SCH (09:00)
[2021-08-16] MEDS ORDERED: CARVEDILOL 12.5MG TABLET PO SCH (09:00)
[2021-08-16] MEDS ORDERED: DORZOLAM/TIMOLOL 2.23/0.68% OPHTH DROPS 10ML EACHEYE SCH (09:00)
[2021-08-16] MEDS: MULTIVITAMINS,THER W-MINERALS TABLET PO SCH (09:01)
[2021-08-16] MEDS: FERROUS SULFATE 325MG TABLET PO SCH ×2 (09:01→17:04)
[2021-08-16] MEDS: MEGESTROL ACETATE 400 MG/10 ML UDC PO SCH (09:01)
[2021-08-16] MEDS: MIDODRINE HCL 5MG TABLET PO SCH ×3 (09:02→17:10)
[2021-08-16 12:00] VITALS: BP 121/55
[2021-08-16] MEDS: FUROSEMIDE 20MG/2ML VIAL IVP SCH ×3 (14:22→21:56)
[2021-08-16 16:00] VITALS: BP 117/74
[2021-08-16] MEDS ORDERED: POTASSIUM CHLORIDE 20MEQ TABLET SR PO NR (16:15)
[2021-08-16 20:00] VITALS: BP 149/66
[2021-08-16] MEDS: ATORVASTATIN CALCIUM 40MG TABLET PO SCH (21:51)
[2021-08-16] MEDS: FAMOTIDINE 20MG TABLET PO SCH (21:52)
[2021-08-16] MEDS: LATANOPROST 0.005% OPHTH DROPS 2.5ML EACHEYE SCH (23:28)
[2021-08-16] MEDS: IBUPROFEN 600MG TABLET PO PRN (23:35)
[2021-08-17] VITALS: BP 149/66
[2021-08-17 01:40] LABS: CLARITY URINE CLEAR (CLEAR); COLOR URINE YELLOW (YELLOW); KETONES URINE NEGATIVE (NEGATIVE); LEUKOCYTE ESTERASE URINE 1+ (NEGATIVE); NITRITE URINE POSITIVE (NEGATIVE); OCCULT BLOOD URINE NEGATIVE (NEGATIVE); PH URINE 7.5 (4.5-8.0); PROTEIN URINE NEGATIVE (NEGATIVE); UROBILINOGEN URINE 0.2 E.U./dL (0.2-1.0)
[2021-08-17 08:00] VITALS: BP 137/66
[2021-08-17] MEDS: BRIMONIDINE 0.2% OPHTH DROPS 5ML BOTHEYE SCH ×4 (08:36→22:20)
[2021-08-17] MEDS: FERROUS SULFATE 325MG TABLET PO SCH ×2 (08:36→16:38)
[2021-08-17] MEDS: FUROSEMIDE 20MG/2ML VIAL IVP SCH ×2 (08:36→22:18)
[2021-08-17] MEDS: MULTIVITAMINS,THER W-MINERALS TABLET PO SCH (08:36)
[2021-08-17] MEDS: MIDODRINE HCL 5MG TABLET PO SCH (08:37)
[2021-08-17] MEDS: MEGESTROL ACETATE 400 MG/10 ML UDC PO SCH (08:38)
[2021-08-17] MEDS ORDERED: AMLODIPINE 5MG TABLET PO SCH (09:00)
[2021-08-17] MEDS: IBUPROFEN 600MG TABLET PO PRN ×2 (10:34→22:17)
[2021-08-17 11:13] LABS: CHLORIDE 101 mEq/L (98-107)
[2021-08-17] MEDS ORDERED: NA PHOS,M-B/NA PHOS,DI-BA ENEMA 118ML PR PRN (13:00)
[2021-08-17] MEDS ORDERED: POTASSIUM CHLORIDE 20MEQ TABLET SR PO NR (15:45)
[2021-08-17] MEDS: LACTULOSE 20G/30ML UDC PO SCH ×2 (16:38→22:17)
[2021-08-17] MEDS: DOCUSATE SODIUM 100MG CAPSULE PO SCH (16:38)
[2021-08-17 20:00] VITALS: BP 112/53
[2021-08-17] MEDS: FAMOTIDINE 20MG TABLET PO SCH (22:14)
[2021-08-17] MEDS: ATORVASTATIN CALCIUM 40MG TABLET PO SCH (22:18)
[2021-08-17] MEDS: LATANOPROST 0.005% OPHTH DROPS 2.5ML EACHEYE SCH (22:19)
[2021-08-18] MEDS: LACTULOSE 20G/30ML UDC PO SCH
[2021-08-18] MEDS: BISACODYL 10MG SUPP PR PRN (06:25)
[2021-08-18 06:35] LABS: BASOPHILS % 0.6 % (0.0-2.0); HEMATOCRIT. 26.2 % (36.0-48.0); HEMOGLOBIN. 8.7 g/dL (12.0-16.0); LYMPHOCYTES % 27.6 % (20.0-50.0); MEAN CORPUSCULAR HEMOGLOBIN 24.9 pg (28.0-32.0); MEAN CORPUSCULAR VOLUME 74.6 fL (81.0-99.0); MEAN PLATELET VOLUME 9.4 fl (7.4-10.4); MONOCYTES % 12.8 % (2.0-8.0); PLATELET 128 x1000/uL (130-400); RED BLOOD CELL COUNT 3.52 mill/uL (4.2-5.4); RED CELL DISTRIBUTION WIDTH 16.8 % (11.6-14.6)
[2021-08-18 06:46] LABS: CHLORIDE 101 mEq/L (98-107)
[2021-08-18 07:07] LABS: TOTAL IRON BINDING CAPACITY 268 ug/dL (250-450)
[2021-08-18 07:18] LABS: FOLIC ACID (FOLATE) SERUM >20 ng/mL ng/mL (>5.38); VITAMIN B12 SERUM >2000 pg/mL pg/mL (211-911)
[2021-08-18 08:00] VITALS: BP 115/58
[2021-08-18] MEDS: FUROSEMIDE 20MG/2ML VIAL IVP SCH ×2 (09:20→21:44)
[2021-08-18] MEDS: FERROUS SULFATE 325MG TABLET PO SCH ×2 (09:20→17:02)
[2021-08-18] MEDS: MEGESTROL ACETATE 400 MG/10 ML UDC PO SCH (09:20)
[2021-08-18] MEDS: DOCUSATE SODIUM 100MG CAPSULE PO SCH ×2 (09:20→17:02)
[2021-08-18] MEDS: MULTIVITAMINS,THER W-MINERALS TABLET PO SCH (09:20)
[2021-08-18] MEDS: BRIMONIDINE 0.2% OPHTH DROPS 5ML BOTHEYE SCH ×2 (13:11→17:02)
[2021-08-18 15:00] VITALS: BP_SYST 105; BP_SYST 88; BP_DIAS 41; BP_DIAS 45
[2021-08-18 15:15] VITALS: BP_SYST 115; BP_SYST 91; BP_DIAS 37; BP_DIAS 57
[2021-08-18] MEDS: MIDODRINE HCL 5MG TABLET PO SCH (17:03)
[2021-08-18 20:00] VITALS: BP 108/43
[2021-08-18] MEDS: LATANOPROST 0.005% OPHTH DROPS 2.5ML EACHEYE SCH (21:42)
[2021-08-18] MEDS: FAMOTIDINE 20MG TABLET PO SCH (21:42)
[2021-08-18] MEDS: ATORVASTATIN CALCIUM 40MG TABLET PO SCH (21:44)
[2021-08-19] MEDS: IBUPROFEN 600MG TABLET PO PRN (07:11)
[2021-08-19 08:00] VITALS: BP 160/60
[2021-08-19] MEDS: MEGESTROL ACETATE 400 MG/10 ML UDC PO SCH (08:25)
[2021-08-19] MEDS: DOCUSATE SODIUM 100MG CAPSULE PO SCH ×2 (08:25→18:11)
[2021-08-19] MEDS: MIDODRINE HCL 5MG TABLET PO SCH ×3 (08:26→18:14)
[2021-08-19] MEDS: ASCORBIC ACID 500 MG TABLET PO SCH (08:26)
[2021-08-19] MEDS: FERROUS SULFATE 325MG TABLET PO SCH ×2 (08:26→18:11)
[2021-08-19] MEDS: MULTIVITAMINS,THER W-MINERALS TABLET PO SCH (08:26)
[2021-08-19] MEDS: FUROSEMIDE 20MG/2ML VIAL IVP SCH ×2 (08:27→20:47)
[2021-08-19] MEDS: BRIMONIDINE 0.2% OPHTH DROPS 5ML BOTHEYE SCH ×3 (08:31→17:00)
[2021-08-19 20:00] VITALS: BP 153/51
[2021-08-19] MEDS: FAMOTIDINE 20MG TABLET PO SCH (20:48)
[2021-08-19] MEDS: ATORVASTATIN CALCIUM 40MG TABLET PO SCH (20:48)
[2021-08-19] MEDS: LATANOPROST 0.005% OPHTH DROPS 2.5ML EACHEYE SCH (20:54)
[2021-08-20 06:28] LABS: BASOPHILS % 0.6 % (0.0-2.0); EOSINOPHILS % 4.3 % (0.0-5.0); HEMATOCRIT. 25.6 % (36.0-48.0); HEMOGLOBIN. 8.4 g/dL (12.0-16.0); LYMPHOCYTES % 25.5 % (20.0-50.0); MEAN CORPUSCULAR HEMOGLOBIN 24.9 pg (28.0-32.0); MEAN CORPUSCULAR VOLUME 75.6 fL (81.0-99.0); MEAN PLATELET VOLUME 9.2 fl (7.4-10.4); MONOCYTES % 9.8 % (2.0-8.0); NEUTROPHILS % 59.8 % (40.0-76.0); PLATELET 147 x1000/uL (130-400); RED BLOOD CELL COUNT 3.38 mill/uL (4.2-5.4); RED CELL DISTRIBUTION WIDTH 17.2 % (11.6-14.6)
[2021-08-20 08:00] VITALS: BP 139/60
[2021-08-20] MEDS: BRIMONIDINE 0.2% OPHTH DROPS 5ML BOTHEYE SCH ×3 (09:00→17:08)
[2021-08-20] MEDS ORDERED: POTASSIUM CHLORIDE 20MEQ TABLET SR PO SCH ×2 (09:00→12:00)
[2021-08-20] MEDS: MIDODRINE HCL 5MG TABLET PO SCH ×3 (09:22→16:58)
[2021-08-20] MEDS: MULTIVITAMINS,THER W-MINERALS TABLET PO SCH (09:22)
[2021-08-20] MEDS: MEGESTROL ACETATE 400 MG/10 ML UDC PO SCH (09:22)
[2021-08-20] MEDS: FERROUS SULFATE 325MG TABLET PO SCH ×2 (09:22→16:53)
[2021-08-20] MEDS: DOCUSATE SODIUM 100MG CAPSULE PO SCH ×2 (09:23→16:53)
[2021-08-20] MEDS: FUROSEMIDE 20MG/2ML VIAL IVP SCH ×2 (09:24→21:25)
[2021-08-20] MEDS: ACETAMINOPHEN 325MG TABLET PO PRN ×2 (09:39→22:40)
[2021-08-20] MEDS: ASCORBIC ACID 500 MG TABLET PO SCH (12:38)
[2021-08-20] MEDS: NITROFURANTOIN 100MG M/M CAPSULE PO SCH ×2 (15:14→21:26)
[2021-08-20 20:00] VITALS: BP 119/54
[2021-08-20] MEDS: ATORVASTATIN CALCIUM 40MG TABLET PO SCH (21:26)
[2021-08-20] MEDS: FAMOTIDINE 20MG TABLET PO SCH (21:26)
[2021-08-20] MEDS: LATANOPROST 0.005% OPHTH DROPS 2.5ML EACHEYE SCH (21:27)
[2021-08-21 06:29] LABS: BASOPHILS % 0.7 % (0.0-2.0); EOSINOPHILS % 2.8 % (0.0-5.0); HEMATOCRIT. 28.2 % (36.0-48.0); HEMOGLOBIN. 8.8 g/dL (12.0-16.0); LYMPHOCYTES % 26.6 % (20.0-50.0); MEAN CORPUSCULAR HEMOGLOBIN 24.2 pg (28.0-32.0); MEAN CORPUSCULAR VOLUME 77.1 fL (81.0-99.0); MEAN PLATELET VOLUME 9.5 fl (7.4-10.4); MONOCYTES % 9.8 % (2.0-8.0); NEUTROPHILS % 60.1 % (40.0-76.0); PLATELET 160 x1000/uL (130-400); RED BLOOD CELL COUNT 3.66 mill/uL (4.2-5.4)
[2021-08-21] MEDS: ACETAMINOPHEN 325MG TABLET PO PRN (07:00)
[2021-08-21 07:49] VITALS: BP 166/74
[2021-08-21] MEDS: FUROSEMIDE 20MG/2ML VIAL IVP SCH ×2 (08:58→21:00)
[2021-08-21] MEDS: MULTIVITAMINS,THER W-MINERALS TABLET PO SCH (08:59)
[2021-08-21] MEDS: DOCUSATE SODIUM 100MG CAPSULE PO SCH ×2 (08:59→17:00)
[2021-08-21] MEDS: MIDODRINE HCL 5MG TABLET PO SCH ×3 (08:59→17:06)
[2021-08-21] MEDS: ASCORBIC ACID 500 MG TABLET PO SCH (09:00)
[2021-08-21] MEDS: BRIMONIDINE 0.2% OPHTH DROPS 5ML BOTHEYE SCH ×3 (09:00→17:00)
[2021-08-21] MEDS: MEGESTROL ACETATE 400 MG/10 ML UDC PO SCH (09:00)
[2021-08-21] MEDS: FERROUS SULFATE 325MG TABLET PO SCH ×2 (09:00→17:06)
[2021-08-21] MEDS: NITROFURANTOIN 100MG M/M CAPSULE PO SCH ×2 (09:08→21:00)
[2021-08-21] MEDS: IBUPROFEN 600MG TABLET PO PRN (11:14)
[2021-08-21] MEDS: MAGNESIUM HYDROXIDE 400MG/5ML 30ML UDC PO PRN (17:08)
[2021-08-21 20:00] VITALS: BP 155/54
[2021-08-21] MEDS: FAMOTIDINE 20MG TABLET PO SCH (21:00)
[2021-08-21] MEDS: ATORVASTATIN CALCIUM 40MG TABLET PO SCH (22:14)
[2021-08-21] MEDS: LATANOPROST 0.005% OPHTH DROPS 2.5ML EACHEYE SCH (22:15)
[2021-08-21] MEDS: ONDANSETRON HCL 4MG TABLET PO PRN (23:56)
[2021-08-22 08:00] VITALS: BP 154/71
[2021-08-22] MEDS: MIDODRINE HCL 5MG TABLET PO SCH ×3 (09:00→17:34)
[2021-08-22] MEDS: MEGESTROL ACETATE 400 MG/10 ML UDC PO SCH (09:12)
[2021-08-22] MEDS: BRIMONIDINE 0.2% OPHTH DROPS 5ML BOTHEYE SCH ×3 (09:13→17:36)
[2021-08-22] MEDS: ACETAMINOPHEN 325MG TABLET PO PRN (09:14)
[2021-08-22] MEDS: DOCUSATE SODIUM 100MG CAPSULE PO SCH ×2 (09:15→17:00)
[2021-08-22] MEDS: NITROFURANTOIN 100MG M/M CAPSULE PO SCH ×2 (09:15→21:54)
[2021-08-22] MEDS: FUROSEMIDE 20MG/2ML VIAL IVP SCH ×2 (09:15→21:53)
[2021-08-22] MEDS: ASCORBIC ACID 500 MG TABLET PO SCH (09:15)
[2021-08-22] MEDS: FERROUS SULFATE 325MG TABLET PO SCH ×2 (09:15→17:34)
[2021-08-22] MEDS: MULTIVITAMINS,THER W-MINERALS TABLET PO SCH (09:15)
[2021-08-22] MEDS: METHYL SALICYLATE/MENTHOL CREAM 85GM TOP SCH ×2 (13:00→17:36)
[2021-08-22] MEDS: ACETAMINOPHEN 500MG TABLET PO SCH ×2 (13:00→17:34)
[2021-08-22] MEDS ORDERED: NALOXONE HCL 0.4MG/ML VIAL IV PRN (15:00)
[2021-08-22] MEDS: LIDOCAINE 5% PATCH TOP SCH (17:34)
[2021-08-22 20:00] VITALS: BP 140/62
[2021-08-22] MEDS ORDERED: NA PHOS,M-B/NA PHOS,DI-BA ENEMA 118ML PR NR (20:45)
[2021-08-22] MEDS ORDERED: MAGNESIUM HYDROXIDE 400MG/5ML 30ML UDC PO PRN (20:45)
[2021-08-22] MEDS: ATORVASTATIN CALCIUM 40MG TABLET PO SCH (21:54)
[2021-08-22] MEDS: MIRTAZAPINE 15MG TABLET PO SCH (21:56)
[2021-08-22] MEDS: FAMOTIDINE 20MG TABLET PO SCH (21:56)
[2021-08-22] MEDS: MAGNESIUM HYDROXIDE 400MG/5ML 30ML UDC PO PRN (21:57)
[2021-08-22] MEDS: LATANOPROST 0.005% OPHTH DROPS 2.5ML EACHEYE SCH (21:59)
[2021-08-23] MEDS: METHYL SALICYLATE/MENTHOL CREAM 85GM TOP SCH ×4 (06:00→19:16)
[2021-08-23 08:00] VITALS: BP 149/79
[2021-08-23] MEDS: BRIMONIDINE 0.2% OPHTH DROPS 5ML BOTHEYE SCH ×3 (08:39→19:13)
[2021-08-23] MEDS: FUROSEMIDE 20MG/2ML VIAL IVP SCH ×2 (08:40→21:51)
[2021-08-23] MEDS: LIDOCAINE 5% PATCH TOP SCH (08:47)
[2021-08-23] MEDS: NITROFURANTOIN 100MG M/M CAPSULE PO SCH ×2 (08:48→21:51)
[2021-08-23] MEDS: FERROUS SULFATE 325MG TABLET PO SCH ×2 (08:48→19:12)
[2021-08-23] MEDS: MEGESTROL ACETATE 400 MG/10 ML UDC PO SCH (08:48)
[2021-08-23] MEDS: MULTIVITAMINS,THER W-MINERALS TABLET PO SCH (08:49)
[2021-08-23] MEDS: ASCORBIC ACID 500 MG TABLET PO SCH (08:50)
[2021-08-23] MEDS: ACETAMINOPHEN 500MG TABLET PO SCH ×3 (08:50→17:00)
[2021-08-23] MEDS: DOCUSATE SODIUM 100MG CAPSULE PO SCH ×2 (08:55→19:12)
[2021-08-23] MEDS: MIDODRINE HCL 5MG TABLET PO SCH ×3 (08:56→17:00)
[2021-08-23 20:00] VITALS: BP 105/51
[2021-08-23] MEDS: LATANOPROST 0.005% OPHTH DROPS 2.5ML EACHEYE SCH (21:51)
[2021-08-23] MEDS: FAMOTIDINE 20MG TABLET PO SCH (21:51)
[2021-08-23] MEDS: ATORVASTATIN CALCIUM 40MG TABLET PO SCH (21:51)
[2021-08-23] MEDS: MAGNESIUM HYDROXIDE 400MG/5ML 30ML UDC PO PRN (21:52)
[2021-08-23] MEDS: MIRTAZAPINE 15MG TABLET PO SCH (21:58)
[2021-08-24] MEDS: METHYL SALICYLATE/MENTHOL CREAM 85GM TOP SCH ×4 (00:43→17:24)
[2021-08-24 06:47] LABS: BASOPHILS % 0.6 % (0.0-2.0); EOSINOPHILS % 3.1 % (0.0-5.0); HEMATOCRIT. 32.9 % (36.0-48.0); HEMOGLOBIN. 10.4 g/dL (12.0-16.0); LYMPHOCYTES % 26.4 % (20.0-50.0); MEAN CORPUSCULAR VOLUME 78.7 fL (81.0-99.0); MEAN PLATELET VOLUME 8.8 fl (7.4-10.4); MONOCYTES % 9.8 % (2.0-8.0); NEUTROPHILS % 60.1 % (40.0-76.0); PLATELET 150 x1000/uL (130-400); RED BLOOD CELL COUNT 4.18 mill/uL (4.2-5.4); RED CELL DISTRIBUTION WIDTH 18.9 % (11.6-14.6)
[2021-08-24 06:52] LABS: CHLORIDE 104 mEq/L (98-107)
[2021-08-24 08:00] VITALS: BP 148/66
[2021-08-24] MEDS: BRIMONIDINE 0.2% OPHTH DROPS 5ML BOTHEYE SCH ×3 (09:00→17:00)
[2021-08-24] MEDS ORDERED: POTASSIUM CHLORIDE 20MEQ TABLET SR PO NR (09:00)
[2021-08-24] MEDS: MIDODRINE HCL 5MG TABLET PO SCH ×3 (09:00→17:00)
[2021-08-24] MEDS: MEGESTROL ACETATE 400 MG/10 ML UDC PO SCH (09:30)
[2021-08-24] MEDS: ASCORBIC ACID 500 MG TABLET PO SCH (09:31)
[2021-08-24] MEDS: FERROUS SULFATE 325MG TABLET PO SCH ×2 (09:31→17:23)
[2021-08-24] MEDS: ACETAMINOPHEN 500MG TABLET PO SCH ×3 (09:31→17:23)
[2021-08-24] MEDS: NITROFURANTOIN 100MG M/M CAPSULE PO SCH ×2 (09:31→22:50)
[2021-08-24] MEDS: MULTIVITAMINS,THER W-MINERALS TABLET PO SCH (09:32)
[2021-08-24] MEDS: DOCUSATE SODIUM 100MG CAPSULE PO SCH ×2 (09:32→17:23)
[2021-08-24] MEDS: FUROSEMIDE 20MG/2ML VIAL IVP SCH ×2 (09:32→10:00)
[2021-08-24] MEDS: LIDOCAINE 5% PATCH TOP SCH ×2 (09:33→10:00)
[2021-08-24] MEDS: ONDANSETRON HCL 4MG TABLET PO PRN (12:13)
[2021-08-24] MEDS: MAGNESIUM HYDROXIDE 400MG/5ML 30ML UDC PO PRN (12:42)
[2021-08-24] MEDS: BISACODYL 10MG SUPP PR PRN (17:33)
[2021-08-24 20:00] VITALS: BP 150/74
[2021-08-24] MEDS: LATANOPROST 0.005% OPHTH DROPS 2.5ML EACHEYE SCH (21:00)
[2021-08-24] MEDS: ATORVASTATIN CALCIUM 40MG TABLET PO SCH (22:50)
[2021-08-24] MEDS: FUROSEMIDE 20MG TABLET PO SCH (22:50)
[2021-08-24] MEDS: FAMOTIDINE 20MG TABLET PO SCH (22:50)
[2021-08-24] MEDS: MIRTAZAPINE 15MG TABLET PO SCH (22:55)
[2021-08-25] MEDS: METHYL SALICYLATE/MENTHOL CREAM 85GM TOP SCH ×5 (07:04→23:08)
[2021-08-25 07:34] LABS: BASOPHILS % 0.6 % (0.0-2.0); EOSINOPHILS % 2.4 % (0.0-5.0); HEMATOCRIT. 30.3 % (36.0-48.0); HEMOGLOBIN. 9.5 g/dL (12.0-16.0); LYMPHOCYTES % 25.1 % (20.0-50.0); MEAN CORPUSCULAR HEMOGLOBIN 24.4 pg (28.0-32.0); MEAN CORPUSCULAR VOLUME 77.6 fL (81.0-99.0); MEAN PLATELET VOLUME 8.9 fl (7.4-10.4); MONOCYTES % 10.6 % (2.0-8.0); NEUTROPHILS % 61.3 % (40.0-76.0); PLATELET 149 x1000/uL (130-400); RED BLOOD CELL COUNT 3.91 mill/uL (4.2-5.4)
[2021-08-25 08:00] VITALS: BP 124/48
[2021-08-25] MEDS: MULTIVITAMINS,THER W-MINERALS TABLET PO SCH (09:00)
[2021-08-25] MEDS: ACETAMINOPHEN 500MG TABLET PO SCH ×3 (09:00→17:46)
[2021-08-25] MEDS ORDERED: POTASSIUM CHLORIDE 20MEQ TABLET SR PO SCH (09:00)
[2021-08-25] MEDS: FERROUS SULFATE 325MG TABLET PO SCH ×2 (09:01→17:46)
[2021-08-25] MEDS: DOCUSATE SODIUM 100MG CAPSULE PO SCH ×2 (09:01→17:46)
[2021-08-25] MEDS: ASCORBIC ACID 500 MG TABLET PO SCH (09:01)
[2021-08-25] MEDS: FUROSEMIDE 20MG TABLET PO SCH ×2 (09:01→20:45)
[2021-08-25] MEDS: BRIMONIDINE 0.2% OPHTH DROPS 5ML BOTHEYE SCH ×3 (09:01→17:00)
[2021-08-25] MEDS: MEGESTROL ACETATE 400 MG/10 ML UDC PO SCH (09:01)
[2021-08-25] MEDS: NITROFURANTOIN 100MG M/M CAPSULE PO SCH (09:01)
[2021-08-25] MEDS: MIDODRINE HCL 5MG TABLET PO SCH ×3 (09:01→17:46)
[2021-08-25] MEDS ORDERED: CYANOCOBALAMIN 1000MCG/ML VIAL IM NR (12:45)
[2021-08-25 20:00] VITALS: BP_SYST 120; BP_SYST 148; BP_SYST 152; BP_DIAS 56; BP_DIAS 60; BP_DIAS 62
[2021-08-25] MEDS: FAMOTIDINE 20MG TABLET PO SCH (20:45)
[2021-08-25] MEDS: ATORVASTATIN CALCIUM 40MG TABLET PO SCH (20:45)
[2021-08-25] MEDS: MIRTAZAPINE 15MG TABLET PO SCH (20:45)
[2021-08-25] MEDS: LATANOPROST 0.005% OPHTH DROPS 2.5ML EACHEYE SCH (20:45)
[2021-08-26] MEDS: METHYL SALICYLATE/MENTHOL CREAM 85GM TOP SCH ×3 (05:45→18:00)
[2021-08-26 06:43] LABS: BASOPHILS % 0.8 % (0.0-2.0); EOSINOPHILS % 2.7 % (0.0-5.0); HEMATOCRIT. 28.5 % (36.0-48.0); HEMOGLOBIN. 9.1 g/dL (12.0-16.0); LYMPHOCYTES % 22.2 % (20.0-50.0); MEAN CORPUSCULAR HEMOGLOBIN 24.5 pg (28.0-32.0); MEAN CORPUSCULAR VOLUME 76.5 fL (81.0-99.0); MEAN PLATELET VOLUME 9.2 fl (7.4-10.4); MONOCYTES % 10.7 % (2.0-8.0); NEUTROPHILS % 63.6 % (40.0-76.0); PLATELET 146 x1000/uL (130-400); RED BLOOD CELL COUNT 3.73 mill/uL (4.2-5.4); RED CELL DISTRIBUTION WIDTH 18.7 % (11.6-14.6)
[2021-08-26 07:40] LABS: CHLORIDE 106 mEq/L (98-107)
[2021-08-26 08:00] VITALS: BP 143/72
[2021-08-26] MEDS: DOCUSATE SODIUM 100MG CAPSULE PO SCH ×2 (08:53→18:10)
[2021-08-26] MEDS: BRIMONIDINE 0.2% OPHTH DROPS 5ML BOTHEYE SCH ×3 (08:53→18:10)
[2021-08-26] MEDS: MULTIVITAMINS,THER W-MINERALS TABLET PO SCH (08:53)
[2021-08-26] MEDS: FUROSEMIDE 20MG TABLET PO SCH ×2 (08:54→22:08)
[2021-08-26] MEDS: FERROUS SULFATE 325MG TABLET PO SCH ×2 (08:54→18:10)
[2021-08-26] MEDS: MIDODRINE HCL 5MG TABLET PO SCH ×3 (08:54→18:13)
[2021-08-26] MEDS: ASCORBIC ACID 500 MG TABLET PO SCH (08:54)
[2021-08-26] MEDS: ACETAMINOPHEN 500MG TABLET PO SCH ×3 (08:55→18:21)
[2021-08-26] MEDS: TRAMADOL 50MG TABLET PO PRN (08:55)
[2021-08-26] MEDS: MEGESTROL ACETATE 400 MG/10 ML UDC PO SCH (08:55)
[2021-08-26] MEDS: LIDOCAINE 5% PATCH TOP SCH ×2 (08:56→09:00)
[2021-08-26] MEDS ORDERED: BRIM5DRO BOTHEYE (20:33)
[2021-08-26] MEDS ORDERED: DOCU-150 PO (20:34)
[2021-08-26] MEDS ORDERED: FAMO40TA7 PO (20:35)
[2021-08-26] MEDS ORDERED: PANT40TA51 PO (20:36)
[2021-08-26] MEDS ORDERED: FERR325T6 PO (20:36)
[2021-08-26] MEDS ORDERED: LOSA50TA41 PO (20:38)
[2021-08-26] MEDS ORDERED: MIRT-90 PO (20:39)
[2021-08-26] MEDS ORDERED: TRAM50TA3 PO (20:40)
[2021-08-26] MEDS ORDERED: XALAO EACHEYE (20:40)
[2021-08-26] MEDS: LATANOPROST 0.005% OPHTH DROPS 2.5ML EACHEYE SCH (22:08)
[2021-08-26] MEDS: FAMOTIDINE 20MG TABLET PO SCH (22:08)
[2021-08-26] MEDS: MIRTAZAPINE 15MG TABLET PO SCH (22:08)
[2021-08-26] MEDS: ATORVASTATIN CALCIUM 40MG TABLET PO SCH (22:08)
[2021-08-27] MEDS: METHYL SALICYLATE/MENTHOL CREAM 85GM TOP SCH ×4 (07:19→18:00)
[2021-08-27 08:00] VITALS: BP 137/64
[2021-08-27] MEDS: MEGESTROL ACETATE 400 MG/10 ML UDC PO SCH (08:46)
[2021-08-27] MEDS: MULTIVITAMINS,THER W-MINERALS TABLET PO SCH (08:46)
[2021-08-27] MEDS: FERROUS SULFATE 325MG TABLET PO SCH ×2 (08:46→17:17)
[2021-08-27] MEDS: ASCORBIC ACID 500 MG TABLET PO SCH (08:47)
[2021-08-27] MEDS: DOCUSATE SODIUM 100MG CAPSULE PO SCH ×2 (08:47→17:17)
[2021-08-27] MEDS: ACETAMINOPHEN 500MG TABLET PO SCH ×3 (08:47→17:17)
[2021-08-27] MEDS: FUROSEMIDE 20MG TABLET PO SCH ×2 (08:47→21:51)
[2021-08-27] MEDS: MIDODRINE HCL 5MG TABLET PO SCH ×3 (08:47→17:00)
[2021-08-27] MEDS: LIDOCAINE 5% PATCH TOP SCH (08:52)
[2021-08-27] MEDS: BRIMONIDINE 0.2% OPHTH DROPS 5ML BOTHEYE SCH ×3 (09:49→17:19)
[2021-08-27] MEDS ORDERED: BISACODYL 10MG SUPP PR NR (10:15)
[2021-08-27] MEDS: TRAMADOL 50MG TABLET PO PRN (10:50)
[2021-08-27 20:00] VITALS: BP 95/44
[2021-08-27] MEDS: LATANOPROST 0.005% OPHTH DROPS 2.5ML EACHEYE SCH (21:50)
[2021-08-27] MEDS: ATORVASTATIN CALCIUM 40MG TABLET PO SCH (21:51)
[2021-08-27] MEDS: MIRTAZAPINE 15MG TABLET PO SCH (21:51)
[2021-08-27] MEDS: FAMOTIDINE 20MG TABLET PO SCH (21:51)
[2021-08-28] MEDS: TRAMADOL 50MG TABLET PO PRN ×2 (06:39→13:39)
[2021-08-28] MEDS: METHYL SALICYLATE/MENTHOL CREAM 85GM TOP SCH ×3 (06:40→12:00)
[2021-08-28 06:53] LABS: BASOPHILS % 0.7 % (0.0-2.0); EOSINOPHILS % 1.3 % (0.0-5.0); HEMATOCRIT. 29.9 % (36.0-48.0); HEMOGLOBIN. 9.6 g/dL (12.0-16.0); LYMPHOCYTES % 29.4 % (20.0-50.0); MEAN CORPUSCULAR HEMOGLOBIN 24.6 pg (28.0-32.0); MEAN CORPUSCULAR VOLUME 76.2 fL (81.0-99.0); MEAN PLATELET VOLUME 8.9 fl (7.4-10.4); NEUTROPHILS % 57.6 % (40.0-76.0); PLATELET 163 x1000/uL (130-400); RED BLOOD CELL COUNT 3.92 mill/uL (4.2-5.4); RED CELL DISTRIBUTION WIDTH 18.8 % (11.6-14.6)
[2021-08-28 08:00] VITALS: BP 147/67
[2021-08-28] MEDS ORDERED: POTASSIUM CHLORIDE 20MEQ TABLET SR PO NR (08:45)
[2021-08-28] MEDS: ACETAMINOPHEN 500MG TABLET PO SCH (09:00)
[2021-08-28] MEDS: MIDODRINE HCL 5MG TABLET PO SCH ×2 (09:00→13:34)
[2021-08-28] MEDS: LIDOCAINE 5% PATCH TOP SCH (09:00)
[2021-08-28] MEDS: ASCORBIC ACID 500 MG TABLET PO SCH (10:16)
[2021-08-28] MEDS: FUROSEMIDE 20MG TABLET PO SCH (10:16)
[2021-08-28] MEDS: BRIMONIDINE 0.2% OPHTH DROPS 5ML BOTHEYE SCH ×2 (10:16→13:34)
[2021-08-28] MEDS: MULTIVITAMINS,THER W-MINERALS TABLET PO SCH (10:16)
[2021-08-28] MEDS: FERROUS SULFATE 325MG TABLET PO SCH (10:17)
[2021-08-28] MEDS: ACETAMINOPHEN 325MG TABLET PO PRN (10:17)
[2021-08-28] MEDS: MEGESTROL ACETATE 400 MG/10 ML UDC PO SCH (10:18)
[2021-08-28] MEDS: DOCUSATE SODIUM 100MG CAPSULE PO SCH (10:37)
[2021-08-28] MEDS ORDERED: FURO-152 PO (12:07)
[2021-08-28] MEDS ORDERED: DOCU-150 PO (12:07)
[2021-08-28] MEDS ORDERED: LOSA25TA3 PO (12:07)
[2021-08-28] MEDS ORDERED: FURO20TA4 PO (12:07)
[2021-08-28] MEDS ORDERED: LIDO700A30 TOP (12:07)
[2021-08-28] MEDS ORDERED: POTA20TA82 PO (12:07)
[2021-08-28] MEDS ORDERED: COR12 PO (12:07)
[2021-08-28 13:35] VITALS: BP 108/75
[2021-08-28 13:39] VITALS: BP 108/75
== END 2021-08-28 14:17 | disposition home health service (06) | DRG 280 ==
PROVIDERS: ADMIT Physical Medicine & Rehabilitation Spinal Cord Injury Medicine; ATTEND Family Medicine Adult Medicine
DX: I11.0 Hypertensive heart disease with heart failure (principal); I50.23 Acute on chronic systolic (congestive) heart failure; I21.4 Non-ST elevation (NSTEMI) myocardial infarction; E44.0 Moderate protein-calorie malnutrition; F33.1 Major depressive disorder, recurrent, moderate; G82.20 Paraplegia, unspecified; I44.2 Atrioventricular block, complete; N39.0 Urinary tract infection, site not specified; D64.9 Anemia, unspecified; D72.829 Elevated white blood cell count, unspecified; E61.1 Iron deficiency; E78.5 Hyperlipidemia, unspecified; E87.6 Hypokalemia; F03.90 Unspecified dementia, unspecified severity, without behavioral disturbance, psychotic disturbance, mood disturbance, and anxiety; F41.9 Anxiety disorder, unspecified; G89.4 Chronic pain syndrome; I25.10 Atherosclerotic heart disease of native coronary artery without angina pectoris; I42.9 Cardiomyopathy, unspecified; I48.0 Paroxysmal atrial fibrillation; I71.4 Abdominal aortic aneurysm, without rupture; R13.10 Dysphagia, unspecified; I95.1 Orthostatic hypotension; R26.9 Unspecified abnormalities of gait and mobility; R20.0 Anesthesia of skin; M54.50 Low back pain, unspecified; M17.10 Unilateral primary osteoarthritis, unspecified knee; R07.89 Other chest pain; Z79.01 Long term (current) use of anticoagulants; Z86.718 Personal history of other venous thrombosis and embolism; Z86.79 Personal history of other diseases of the circulatory system; I25.2 Old myocardial infarction; Z87.891 Personal history of nicotine dependence; Z91.19 Patient's noncompliance with other medical treatment and regimen; Z68.23 Body mass index [BMI] 23.0-23.9, adult; Z88.0 Allergy status to penicillin; Z95.810 Presence of automatic (implantable) cardiac defibrillator; Z95.828 Presence of other vascular implants and grafts; Z86.74 Personal history of sudden cardiac arrest; M79.609 Pain in unspecified limb
CPT/HCPCS: 36415; 71045; 74018; 80048; 80053; 81003; 82306; 82607; 82746; 83540; 83550; 83735; 84134; 84443; 85025; 92523; 92610; 93970; 97110; 97116; 97162; 97166; 97530; 97535; J1940; J3420; Q0162